=== PATIENT | female | born 1985 | race Caucasian/White ===

== ENCOUNTER 2017-07-19 05:27 | Emergency (ER) | payer BC ==
[~2017-07-19] VITALS: Ht 162.6 cm; Wt 120.8 kg
[2017-07-19 05:33] VITALS: Ht 162.6 cm; Wt 120.8 kg
[2017-07-19] MEDS ORDERED: ONDANSETRON INJ 2 MG/ML 2 ML VIAL IV STA (05:53)
[2017-07-19] MEDS ORDERED: SODIUM CHLORIDE 0.9% 1000ML 1,000 ML IV STA ×2 (05:53)
[2017-07-19] MEDS ORDERED: MEDR10TA PO (05:57)
[2017-07-19] MEDS ORDERED: PRLSR20 PO (05:57)
[2017-07-19 06:15] VITALS: TEMP 36.5
[2017-07-19 06:16] LABS: BASO % 0.3 %; BASO ABS # 0.03 K/uL (0-0.2); COMPLETE YES; EOS % 1.5 %; HEMATOCRIT 45.1 % (37-47); IG% 0.3 %; LYMPH % 23.1 %; LYMPH ABS # 2.41 K/uL (1.2-3.4); MEAN CELL VOLUME 89.8 fL (80-100); MEAN CORPUSCULAR HEMOGLOBIN 30.5 pg (25-34); MEAN CORPUSCULAR HGB CONC 33.9 g/dl (32-36); MEAN PLATELET VOLUME 11.4 fL (7.4-10.4); MONO % 5.9 %; NEUT % 68.9 %; PLATELET COUNT 249 K/uL (130-400); RED BLOOD COUNT 5.02 M/uL (4.2-5.4); WHITE BLOOD COUNT 10.43 K/uL (4.8-10.8)
[2017-07-19 06:28] LABS: BUN/CREATININE RATIO 20.6 (10-20); CALCIUM 9.2 mg/dl (8.5-10.1); CREATININE 0.78 mg/dl (0.60-1.20); POTASSIUM 3.8 mmol/L (3.5-5.1)
[2017-07-19 06:31] LABS: ALB/GLOB RATIO 0.9 (0.9-2)
--- NOTE | 2017-07-19 06:31 | EMERGENCY ROOM VISIT NOTE ---
History First contact with patient: 05:40 Chief Complaint: DIARRHEA Stated Complaint: SEVERE DIARRHEA,STOMACH PAIN,WEAK Nursing Triage Summary: nausea vomiting upset stomach diarrhea abdominal pain since sunday. History of Present Illness The patient is a 31 year old female who presents to the Emergency Room with complaints of diarrhea and vomiting. The patient states that her symptoms began 2 days ago. She initially developed diarrhea and states that she took her temperature that evening and it was 101F. The patient states that yesterday, she also developed vomiting. She has had multiple episodes of both vomiting and diarrhea. She states that her stools are green in color and are foamy. She denies any recent antibiotics or unknown food/water sources. She does report that she has a history of C. difficile diarrhea. She reports some generalized abdominal discomfort which she rates a 6/10. Review of Systems A complete 10 point review of systems was reviewed with the patient with pertinent positives and negatives as per history of present illness. All else were negative. Past Medical/Surgical History Medical Problems: (1) section (2) Cholecystectomy (3) Kidney stone (4) Polycystic ovaries Social History Smoking Status: Current Every Day Smoker Alcohol Use: none Marital Status: Housing Status: lives with significant other Occupation Status: employed Current/Historical Medications Scheduled Dicyclomine Hcl (Bentyl), 1 CAP PO TID Medroxyprogesterone (Provera), 10 MG PO UD Ondasetron Odt (Zofran Odt), 4 MG SL Q6H Scheduled PRN Omeprazole (Prilosec), 20 MG PO DAILY PRN for HEARTBURN Physical Exam Vital Signs Date Time Temp Pulse Resp B/P (MAP) Pulse Ox O2 Delivery O2 Flow Rate FiO2 07/19/17 08:31 68 15 109/56 97 07/19/17 06:36 60 15 108/59 97 Room Air 07/19/17 06:15 36.5 70 18 106/68 98 Room Air 07/19/17 05:33 36.7 86 20 109/76 95 Room Air Physical Exam VITALS: Vitals are noted on the nurse's note and reviewed by myself. Vital signs stable. GENERAL: This is a 31-year-old female, in no acute distress, nondiaphoretic, well-developed well-nourished. SKIN: Capillary reflex less than 2 seconds. HEENT: Normocephalic. PERRLA. Mucous membranes moist. HEART: Regular rate and rhythm without murmurs gallops or rubs. LUNGS: Clear to auscultation bilaterally without wheezes, rales or rhonchi. ABDOMEN: Positive bowel sounds x 4. Soft, nontender to palpation. NEURO: Patient was alert and oriented to person place and time. Medical Decision & Procedures Laboratory Results 07/19/17 06:04 Red Blood Count 5.02, Mean Corpuscular Volume 89.8, Mean Corpuscular Hemoglobin 30.5, Mean Corpuscular Hemoglobin Concent 33.9, Mean Platelet Volume 11.4, Neutrophils (%) (Auto) 68.9, Lymphocytes (%) (Auto) 23.1, Monocytes (%) (Auto) 5.9, Eosinophils (%) (Auto) 1.5, Basophils (%) (Auto) 0.3, Neutrophils # (Auto) 7.18, Lymphocytes # (Auto) 2.41, Monocytes # (Auto) 0.62, Eosinophils # (Auto) 0.16, Basophils # (Auto) 0.03 07/19/17 06:04 Test 07/19/17 06:04 07/19/17 06:35 White Blood Count 10.43 K/uL (4.8-10.8) Red Blood Count 5.02 M/uL (4.2-5.4) Hemoglobin 15.3 g/dL (12.0-16.0) Hematocrit 45.1 % (37-47) Mean Corpuscular Volume 89.8 fL (80-100) Mean Corpuscular Hemoglobin 30.5 pg (25-34) Mean Corpuscular Hemoglobin Concent 33.9 g/dl (32-36) Platelet Count 249 K/uL (130-400) Mean Platelet Volume 11.4 fL (7.4-10.4) Neutrophils (%) (Auto) 68.9 % Lymphocytes (%) (Auto) 23.1 % Monocytes (%) (Auto) 5.9 % Eosinophils (%) (Auto) 1.5 % Basophils (%) (Auto) 0.3 % Neutrophils # (Auto) 7.18 K/uL (1.4-6.5) Lymphocytes # (Auto) 2.41 K/uL (1.2-3.4) Monocytes # (Auto) 0.62 K/uL (0.11-0.59) Eosinophils # (Auto) 0.16 K/uL (0-0.5) Basophils # (Auto) 0.03 K/uL (0-0.2) RDW Standard Deviation 41.3 fL (36.4-46.3) RDW Coefficient of Variation 12.8 % (11.5-14.5) Immature Granulocyte % (Auto) 0.3 % Immature Granulocyte # (Auto) 0.03 K/uL (0.00-0.02) Anion Gap 8.0 mmol/L (3-11) Est Creatinine Clear Calc Drug Dose 132.7 ml/min Estimated GFR () 116.6 Estimated GFR (Non- 100.6 BUN/Creatinine Ratio 20.6 (10-20) Calcium Level 9.2 mg/dl (8.5-10.1) Total Bilirubin 0.5 mg/dl (0.2-1) Aspartate Amino Transf (AST/SGOT) 20 U/L (15-37) Alanine Aminotransferase (ALT/SGPT) 36 U/L (12-78) Alkaline Phosphatase 80 U/L (45-117) Total Protein 7.7 gm/dl (6.4-8.2) Albumin 3.7 gm/dl (3.4-5.0) Globulin 4.0 gm/dl (2.5-4.0) Albumin/Globulin Ratio 0.9 (0.9-2) Lipase 104 U/L (73-393) Urine Color DK YELLOW Urine Appearance CLOUDY (CLEAR) Urine pH 5.5 (4.5-7.5) Urine Specific [place] 1.031 (1.000-1.030) Urine Protein 1+ (NEG) Urine Glucose (UA) NEG (NEG) Urine Ketones TRACE (NEG) Urine Occult Blood NEG (NEG) Urine Nitrite NEG (NEG) Urine Bilirubin NEG (NEG) Urine Urobilinogen NEG (NEG) Urine Leukocyte Esterase NEG (NEG) Urine WBC (Auto) 1-5 /hpf (0-5) Urine RBC (Auto) 0-4 /hpf (0-4) Urine Hyaline Casts (Auto) 1-5 /lpf (0-5) Urine Epithelial Cells (Auto) >30 /lpf (0-5) Urine Bacteria (Auto) NEG (NEG) Urine Crystals CALCIUM OXALATE (NONE Urine Pathogenic Casts 0-3 GRANULAR CASTS /lpf (0) Urine Mucus PRESENT (NONE PRSENT) Urine Test NEG (NEG) Date/Time Source Procedure Growth Status 07/19/17 06:35 Stool C.difficile Toxin B Gene (PCR) - Final No C. difficile toxin B gene detected Complete Medications Administered Medications (Trade) Dose Ordered Sig/Iftikhar Route Start Time Stop Time Status Last Admin Dose Admin Sodium Chloride 1,000 ml @ 999 mls/hr Q1H1M STAT IV 07/19/17 05:53 07/19/17 06:53 DC 07/19/17 06:08 999 MLS/HR Sodium Chloride 1,000 ml @ 999 mls/hr Q1H1M STAT IV 07/19/17 05:53 07/19/17 06:53 DC 07/19/17 06:08 999 MLS/HR Ondansetron HCl (Zofran Inj) 4 mg NOW STAT IV 07/19/17 05:53 07/19/17 05:54 DC 07/19/17 06:08 4 MG Ketorolac Tromethamine (Toradol Inj) 30 mg NOW STAT IV 07/19/17 06:53 07/19/17 06:54 DC 07/19/17 06:58 30 MG ED Course The patient was evaluated as above. Labs were drawn and IV access was obtained. Patient was medicated with IV Zofran and Toradol. She was given a total of 2 L normal saline solution. Patient was reevaluated and felt much better. Discharge instructions were reviewed with the patient. The patient verbalized understanding of my assessment and treatment plan and was discharged home in good condition. Medical Decision Differential diagnosis includes gastroenteritis, colitis, diverticulitis, C. difficile, cholecystitis, bowel obstruction, among others. The patient is a 31-year-old female who presents today complaining of nausea, vomiting and diarrhea. Labs revealed no leukocytosis, anemia or concerning electrolyte abnormalities. Urinalysis was not suggestive of infection. Stool sample was obtained and tested negative for C. difficile. Culture is pending. Patient does not have any abdominal tenderness and I do not feel that imaging is indicated at this time. She had significant improvement with IV fluids, Toradol and Zofran. She was able to tolerate oral fluids. She likely has a gastroenteritis and was encouraged to follow-up closely with her primary care provider. She is given a prescription for Zofran. She will return here for any worsening or new/concerning symptoms. Based on the patient's presentation and work up, I feel the patient is stable for outpatient treatment. The patient was educated to return to the emergency department for any worsening of their current condition or new/concerning symptoms. She will follow up with her PCP. Medication Reconcilliation Current Medication List: was personally reviewed by me Blood Pressure Screening Patient's blood pressure: Normal blood pressure Impression Primary Impression: Nausea, vomiting and diarrhea Departure Information Dispostion Home / Self-Care Condition GOOD Prescriptions Dicyclomine Hcl (BENTYL) 10 Mg Cap 1 CAP PO TID for 3 Days, #9 CAP Prov: Lianna Whitfield PA-C 07/19/17 Ondasetron Odt (ZOFRAN ODT) 4 Mg Tab 4 MG SL Q6H for Nausea, #15 TAB Prov: Lianna Whitfield PA-C 07/19/17 Referrals Dawit Xavier M.D. (PCP) Patient Instructions My [facility] Additional Instructions You have been treated in the Emergency Department for your nausea, vomiting and diarrhea. Laboratory results have ruled out any emergent causes for your abdominal pain which would warrant admission or surgery. You have been prescribed Zofran to be used for any nausea or vomiting. Take as prescribed. Bentyl as prescribed. For pain control, you can use the following [id number] medicines (if >12 yo): - Regular strength (325mg/tab) Tylenol (acetaminophen) 2 tabs every 4-6 hours as needed. Do not exceed 12 tablets in a 24 hour period. Avoid taking more than 4 grams (4000 mg) of Tylenol per day. This includes any other sources of acetaminophen you may take on a regular basis. - Regular strength (200 mg/tab) Advil (ibuprofen) 1-2 tabs every 4-6 hours as needed. Do not exceed a dose of 3200 mg per day. Drink plenty of water and stay well hydrated. As with any trip to the Emergency Department, you should follow-up with your Primary Care Provider from today's visit. Return to the emergency department if your symptoms persist despite treatment plan outlined above or if the following symptoms occur: increased fevers, chills , worsening nausea/vomiting, blood in your stool or urine.
[2017-07-19] MEDS ORDERED: KETOROLAC TROMETHAMINE 30 MG/ML VIAL IV STA (06:53)
[2017-07-19 06:54] LABS: URINE APPEARANCE CLOUDY (CLEAR); URINE COLOR DK YELLOW; URINE EPITHELIAL CELL AUTO >30 /lpf (0-5); URINE NITRITE NEG (NEG); URINE PH 5.5 (4.5-7.5); URINE SPECIFIC GRAVITY 1.031 (1.000-1.030); UROBILINOGEN NEG (NEG); ZZUR CULT IF INDIC CLEAN CATCH NO
[2017-07-19 07:07] LABS: MANUAL MICROSCOPIC REQUIRED? NO; REVIEW REQ? YES; URINE BILIRUBIN NEG (NEG)
[2017-07-19 07:13] LABS: URINE MUCUS PRESENT (NONE PRSENT); URINE PATH CASTS 0-3 GRANULAR CASTS /lpf (0)
[2017-07-19] MEDS ORDERED: ONDA4TAB10 SL (08:11)
[2017-07-19] MEDS ORDERED: DICY10CA55 PO (08:11)
[2017-07-19 08:31] VITALS: BP 109/56; PULSE 68; O2SAT 97
== END 2017-07-19 08:32 | disposition home or self-care (01) ==
LOC: C.EDB 05:28
DX: R11.2 Nausea with vomiting, unspecified (principal); R19.7 Diarrhea, unspecified; F17.210 Nicotine dependence, cigarettes, uncomplicated; Z87.442 Personal history of urinary calculi; E28.2 Polycystic ovarian syndrome

== ENCOUNTER → 2017-09-29 | Outpatient (CLI) | payer BC ==
[~2017-09-29] MED LIST: MEDR10TA PO; ONDA4TAB10 SL; PRLSR20 PO
[2017-09-29 10:55] LABS: HEMATOCRIT 40.6 % (37-47); MEAN CORPUSCULAR HEMOGLOBIN 30.5 pg (25-34); MEAN CORPUSCULAR HGB CONC 33.5 g/dl (32-36); MEAN PLATELET VOLUME 11.5 fL (7.4-10.4); PLATELET COUNT 212 K/uL (130-400); RED BLOOD COUNT 4.46 M/uL (4.2-5.4)
== END | disposition home or self-care (01) ==
LOC: C.LAB 10:28
PROVIDERS: ATTEND Obstetrics & Gynecology
DX: N93.8 Other specified abnormal uterine and vaginal bleeding (principal)

== ENCOUNTER 2018-05-10 21:40 | Emergency (ER) | payer BC ==
[~2018-05-10] VITALS: Ht 162.6 cm; Wt 120.0 kg
[2018-05-10 21:42] VITALS: TEMP 36.8; Ht 162.6 cm; Wt 120.0 kg
[2018-05-10] MEDS ORDERED: KETOROLAC TROMETHAMINE 30 MG/ML VIAL IV STA (22:02)
[2018-05-10] MEDS ORDERED: ONDANSETRON INJ 2 MG/ML 2 ML VIAL IV STA (22:02)
[2018-05-10] MEDS ORDERED: SODIUM CHLORIDE 0.9% 1000ML 1,000 ML IV ONE (22:15)
[2018-05-10 22:21] LABS: BASO % 0.5 %; BASO ABS # 0.05 K/uL (0-0.2); EOS % 1.4 %; EOS ABS # 0.15 K/uL (0-0.5); HEMOGLOBIN 13.9 g/dL (12.0-16.0); IG# 0.03 K/uL (0.00-0.02); LYMPH % 31.9 %; LYMPH ABS # 3.42 K/uL (1.2-3.4); MEAN CELL VOLUME 89.7 fL (80-100); MEAN CORPUSCULAR HEMOGLOBIN 30.4 pg (25-34); MEAN CORPUSCULAR HGB CONC 33.9 g/dl (32-36); MEAN PLATELET VOLUME 11.7 fL (7.4-10.4); MONO % 8.2 %; MONO ABS # 0.88 K/uL (0.11-0.59); NEUT % 57.7 %; NEUT ABS # 6.19 K/uL (1.4-6.5); PLATELET COUNT 218 K/uL (130-400); RED CELL DISTRIBUTION WIDTH CV 12.9 % (11.5-14.5); RED CELL DISTRIBUTION WIDTH SD 41.7 fL (36.4-46.3); WHITE BLOOD COUNT 10.72 K/uL (4.8-10.8)
[2018-05-10 22:42] LABS: ALBUMIN 3.6 gm/dl (3.4-5.0); CALCIUM 9.1 mg/dl (8.5-10.1); CREATININE 0.7 mg/dl (0.60-1.20); POTASSIUM 3.8 mmol/L (3.5-5.1); TOTAL PROTEIN 7.4 gm/dl (6.4-8.2)
[2018-05-11 01:18] VITALS: BP 93/70; PULSE 60; O2SAT 97
[2018-05-11] MEDS ORDERED: NORCO 5/325MG HOME PACK PO ONE (01:45)
--- NOTE | 2018-05-11 06:12 | DIAGNOSTIC IMAGING REPORT ---
EXAMINATION: PELVIC ULTRASOUND (transabdominal and endovaginal scanning) CLINICAL HISTORY: Pelvic pain and cramping COMPARISON STUDY: CT scan dated 05/09/2018 FINDINGS: The uterus measured 5.1 x 4.2 x 4.9 cm. The endometrial stripe measured 8 mm. The right ovary measured 29 x 22 x 25 mm. There is a 9 mm hyperechoic ringlike focus within the right ovary. The appearance is nonspecific but correlation with a beta hCG is recommended to exclude an ectopic . The left ovary measured 36 x 24 x 27 mm.. There is no ultrasonographic evidence of ovarian torsion. It should be noted that ovarian torsion can be present with normal Doppler ultrasonographic findings. There was no evidence of pathologic free pelvic fluid. IMPRESSION: 1. No uterine abnormalities identified 2. Nonspecific 9 mm hypoechoic ringlike focus within the right ovary. While this may simply represent a complicated involuting cyst, correlation with a beta hCG is recommended to exclude an ectopic Electronically signed by: Claudio Ramirez M.D. 05/11/2018 6:10 AM Dictated Date/Time: 05/11/2018 6:06 AM
--- NOTE | 2018-05-11 06:17 | DIAGNOSTIC IMAGING REPORT ---
ABDOMEN 2VIEW W/PA CHEST RTN CLINICAL HISTORY: low abd pain/cramping COMPARISON STUDY: 04/19/2015 FINDINGS: The erect chest reveals no free intraperitoneal air. There is no focal pulmonary consolidation. There are surgical clips within the right upper quadrant consistent with a prior cholecystectomy. There are no abnormally dilated loops of large or small bowel. There are no transition zone to indicate bowel obstruction. There is a sclerotic density projected over the left acetabulum likely representing a bone island. IMPRESSION: No evidence of bowel obstruction. No evidence of free air. Electronically signed by: Claudio Ramirez M.D. 05/11/2018 6:15 AM Dictated Date/Time: 05/11/2018 6:14 AM
--- NOTE | 2018-05-11 23:18 | EMERGENCY ROOM VISIT NOTE ---
History First contact with patient: 21:46 Chief Complaint: ABDOMINAL PAIN Stated Complaint: PAIN RIGHT LOWER SIDE, 99.9 TEMP Nursing Triage Summary: Pt reports right sided abdominal pain since Sunday. Pt was evaluated here yesterday. Pt remains with pain. +nausea and fever. Pt tender to right upper abdomen. History of Present Illness The patient is a 32 year old female who presents to the Emergency Room with complaints of right lower quadrant abdominal pain for the past 2 days. The patient was seen and evaluated at this facility yesterday where blood work and CT scan with contrast were nondiagnostic. The patient states that she felt well at the time of discharge home. Upon waking from sleep this morning she states that she had some nausea which was new. She also states that she had a 99.9F temperature at home. She has not taken any Advil or Tylenol for her symptoms. She rates her discomfort a 5/10. No vaginal drainage or discharge. She is not concerned for STDs. She does have past surgical history including section and cholecystectomy. Review of Systems More than 10 systems were reviewed and otherwise negative with the exception of history of present illness. Past Medical/Surgical History Medical Problems: (1) section (2) Cholecystectomy (3) Kidney stone (4) Polycystic ovaries Family History Diabetes mellitus FHx: gallbladder disease Heart disease Hypertension Kidney disease Kidney stones Lung disease Social History Smoking Status: Current Every Day Smoker Alcohol Use: none Marital Status: Housing Status: lives with significant other Occupation Status: employed Current/Historical Medications No Active Prescriptions or Reported Meds Physical Exam Vital Signs Date Time Temp Pulse Resp B/P (MAP) Pulse Ox O2 Delivery O2 Flow Rate FiO2 05/11/18 01:18 60 16 93/70 97 Room Air 05/10/18 23:23 69 16 106/54 95 Room Air 05/10/18 21:42 36.8 80 18 125/84 97 Room Air Physical Exam VITALS: Vitals are noted on the nurse's note and reviewed by myself. Vital signs stable. GENERAL: Well-developed, well-nourished, obese white female, who is in no acute distress and resting comfortably. Patient is cooperative with the examination. HEAD: Normocephalic atraumatic. HEART: Regular rate and rhythm without murmurs gallops or rubs. LUNGS: Clear to auscultation bilaterally without wheezes, rales or rhonchi. No retractions or accessory muscle use. ABDOMEN: Positive normal bowel sounds x 4. Soft with mild right lower quadrant tenderness on palpation. No rebound or guarding. No CVA tenderness. PELVIC: Examination was performed in the presence of a female nursing vault keeper. Normal-appearing external female genitalia without rash or lesion. Vaginal vault without lesion, malodor, or obvious atypical discharge. Cervix was easily identified and appears without lesion or discharge. Swabs were obtained. No cervical motion tenderness. Bimanual exam was nondiagnostic secondary to patient's body habitus. MUSCULOSKELETAL: No muscle atrophy, erythema, or edema noted. Full range of motion in all extremities. Medical Decision & Procedures ER Provider Diagnostic Interpretation: ABDOMEN 2VIEW W/PA CHEST RTN CLINICAL HISTORY: low abd pain/cramping COMPARISON STUDY: 04/19/2015 FINDINGS: The erect chest reveals no free intraperitoneal air. There is no focal pulmonary consolidation. There are surgical clips within the right upper quadrant consistent with a prior cholecystectomy. There are no abnormally dilated loops of large or small bowel. There are no transition zone to indicate bowel obstruction. There is a sclerotic density projected over the left acetabulum likely representing a bone island. IMPRESSION: No evidence of bowel obstruction. No evidence of free air. EXAMINATION: PELVIC ULTRASOUND (transabdominal and endovaginal scanning) CLINICAL HISTORY: Pelvic pain and cramping COMPARISON STUDY: CT scan dated 05/09/2018 FINDINGS: The uterus measured 5.1 x 4.2 x 4.9 cm. The endometrial stripe measured 8 mm. The right ovary measured 29 x 22 x 25 mm. There is a 9 mm hyperechoic ringlike focus within the right ovary. The appearance is nonspecific but correlation with a beta hCG is recommended to exclude an ectopic . The left ovary measured 36 x 24 x 27 mm.. There is no ultrasonographic evidence of ovarian torsion. It should be noted that ovarian torsion can be present with normal Doppler ultrasonographic findings. There was no evidence of pathologic free pelvic fluid. IMPRESSION: 1. No uterine abnormalities identified 2. Nonspecific 9 mm hypoechoic ringlike focus within the right ovary. While this may simply represent a complicated involuting cyst, correlation with a beta hCG is recommended to exclude an ectopic Laboratory Results 05/10/18 22:11 Red Blood Count 4.57, Mean Corpuscular Volume 89.7, Mean Corpuscular Hemoglobin 30.4, Mean Corpuscular Hemoglobin Concent 33.9, Mean Platelet Volume 11.7, Neutrophils (%) (Auto) 57.7, Lymphocytes (%) (Auto) 31.9, Monocytes (%) (Auto) 8.2, Eosinophils (%) (Auto) 1.4, Basophils (%) (Auto) 0.5, Neutrophils # (Auto) 6.19, Lymphocytes # (Auto) 3.42, Monocytes # (Auto) 0.88, Eosinophils # (Auto) 0.15, Basophils # (Auto) 0.05 05/10/18 22:11 Test 05/10/18 22:10 05/10/18 22:11 05/11/18 00:44 05/11/18 01:05 Urine Color YELLOW Urine Appearance CLEAR (CLEAR) Urine pH 5.5 (4.5-7.5) Urine Specific [place] 1.019 (1.000-1.030) Urine Protein NEG (NEG) Urine Glucose (UA) NEG (NEG) Urine Ketones NEG (NEG) Urine Occult Blood NEG (NEG) Urine Nitrite NEG (NEG) Urine Bilirubin NEG (NEG) Urine Urobilinogen NEG (NEG) Urine Leukocyte Esterase NEG (NEG) White Blood Count 10.72 K/uL (4.8-10.8) Red Blood Count 4.57 M/uL (4.2-5.4) Hemoglobin 13.9 g/dL (12.0-16.0) Hematocrit 41.0 % (37-47) Mean Corpuscular Volume 89.7 fL (80-100) Mean Corpuscular Hemoglobin 30.4 pg (25-34) Mean Corpuscular Hemoglobin Concent 33.9 g/dl (32-36) Platelet Count 218 K/uL (130-400) Mean Platelet Volume 11.7 fL (7.4-10.4) Neutrophils (%) (Auto) 57.7 % Lymphocytes (%) (Auto) 31.9 % Monocytes (%) (Auto) 8.2 % Eosinophils (%) (Auto) 1.4 % Basophils (%) (Auto) 0.5 % Neutrophils # (Auto) 6.19 K/uL (1.4-6.5) Lymphocytes # (Auto) 3.42 K/uL (1.2-3.4) Monocytes # (Auto) 0.88 K/uL (0.11-0.59) Eosinophils # (Auto) 0.15 K/uL (0-0.5) Basophils # (Auto) 0.05 K/uL (0-0.2) RDW Standard Deviation 41.7 fL (36.4-46.3) RDW Coefficient of Variation 12.9 % (11.5-14.5) Immature Granulocyte % (Auto) 0.3 % Immature Granulocyte # (Auto) 0.03 K/uL (0.00-0.02) Anion Gap 7.0 mmol/L (3-11) Est Creatinine Clear Calc Drug Dose 145.9 ml/min Estimated GFR () 131.9 Estimated GFR (Non- 113.8 BUN/Creatinine Ratio 21.3 (10-20) Calcium Level 9.1 mg/dl (8.5-10.1) Total Bilirubin 0.3 mg/dl (0.2-1) Aspartate Amino Transf (AST/SGOT) 17 U/L (15-37) Alanine Aminotransferase (ALT/SGPT) 30 U/L (12-78) Alkaline Phosphatase 78 U/L (45-117) Total Protein 7.4 gm/dl (6.4-8.2) Albumin 3.6 gm/dl (3.4-5.0) Globulin 3.8 gm/dl (2.5-4.0) Albumin/Globulin Ratio 1.0 (0.9-2) Lipase 179 U/L (73-393) Human Chorionic Gonadotropin, Quant < 1 mIU/mL Medications Administered Medications (Trade) Dose Ordered Sig/Iftikhar Route Start Time Stop Time Status Last Admin Dose Admin Sodium Chloride 1,000 ml @ 999 mls/hr Q1H1M ONCE IV 05/10/18 22:15 05/10/18 23:15 DC 05/10/18 22:19 999 MLS/HR Ketorolac Tromethamine (Toradol Inj) 30 mg NOW STAT IV 05/10/18 22:02 05/10/18 22:05 DC 05/10/18 22:21 30 MG Ondansetron HCl (Zofran Inj) 4 mg NOW STAT IV 05/10/18 22:02 05/10/18 22:05 DC 05/10/18 22:19 4 MG Acetaminophen/ Hydrocodone Bitart ([place] 5/325mg Home Pack) 1 homepack UD ONCE PO 05/11/18 01:45 05/11/18 01:46 DC 05/11/18 01:39 1 [facility] ED Course Physical exam and history were performed. Nursing notes, EMR, and Medication List were personally reviewed. Patient appears to have right lower abdominal pain for the past few days. On examination her discomfort is very minimal in the right lower quadrant. She states that her symptoms have slightly differed from yesterday, where now she has some nausea and reports a low-grade fever. Of note she does not have a temperature here in the ER and has not taken any antipyretics to improve this. Because of her symptoms IV access was established and labs were obtained. The patient was hydrated and medicated as above. X-ray and ultrasound were ordered. The case was discussed with my attending physician, who remain closely involved in care decision-making The patient's blood work is as above and was reviewed. She does not have a significantly elevated white blood cell count, gross anemia, bandemia, or significant electrolyte imbalance. Transaminases are nondiagnostic. Urine is without obvious evidence of. X-ray was reviewed by myself and radiology as showing no significant. The patient's ultrasound suggests a 1 cm atypical finding near the right ovary. The patient's hCG quantitative is less than 1, and she has a negative urine yesterday. I do not suspect this is related to an ectopic or other similar process. Pelvic swabs are pending at the time of this dictation. On reevaluation the patient appears very comfortable. Her repeat abdominal exam continues with only minimal tenderness. Her symptoms certainly could be related to a cyst or KNOTTER HAND etiology. She does not seem to have torsion or other acute surgical process. The patient appears well for discharge home and was given instructions to follow with her KNOTTER HAND. She was otherwise invited back to the ER with any new, worsening, or concerning symptoms. The chart was completed utilizing [employer] Speech Voice Recognition Software. Grammatical errors, random word insertions, pronoun errors, and incomplete sentences are an occasional consequence of this system due to software limitations, ambient noise, and hardware issues. Any formal questions or concerns about the content, text, or information contained within the body of this dictation should be directly addressed to the provider for clarification. . Medical Decision Differential diagnosis: Etiologies such as KNOTTER HAND etiology, appendicitis, diverticulitis, PUD, biliary pathology, UTI, pancreatitis, obstruction, mesenteric ischemia, aortic pathology , infections, inflammatory bowel disease, renal colic, as well as others were entertained. Impression Primary Impression: Right lower quadrant abdominal pain Departure Information Dispostion Home / Self-Care Condition GOOD Prescriptions No Active Prescriptions or Reported Meds Referrals Laisha Barth D.O. (PCP) Forms Call Back Authorization, HOME CARE DOCUMENTATION FORM, IMPORTANT VISIT INFORMATION Patient Instructions My [facility] Additional Instructions You were seen and evaluated today on an emergency basis only. This is not a substitute for, or an effort to provide, complete comprehensive medical care. It is not possible to recognize and treat all injuries or illnesses in a single emergency department visit. For this reason it is recommended that you followup with your KNOTTER HAND for ongoing care and evaluation. For baseline pain relief you may alternate ibuprofen and acetaminophen every 4 hours for pain control. Take 600 mg ibuprofen (Advil) and then 4 hours later take 1000 mg acetaminophen (Tylenol). Do not take more than 3000 mg acetaminophen in a single day. [place] (hydrocodone/acetaminophen) 5/325 mg (homepack): Take ONE pill by mouth every 6 hours as needed for worsening breakthrough pain. Do not drink or drive on [place]. This medication will likely make you tired. Do not take [place] and Tylenol at the same time as both contain acetaminophen. [place] may cause constipation. You may wish to take an [id number] stool softener like Colace if this occurs. You are welcome to return to the emergency department anytime with new, worsening, or concerning symptoms.
== END 2018-05-11 01:45 | disposition home or self-care (01) ==
LOC: C.EDB 21:41 → C.EDC 05-11 01:45
DX: R10.31 Right lower quadrant pain (principal); R11.0 Nausea; R50.9 Fever, unspecified; F17.200 Nicotine dependence, unspecified, uncomplicated; Z90.49 Acquired absence of other specified parts of digestive tract; Z83.79 Family history of other diseases of the digestive system

== ENCOUNTER 2024-07-27 11:29 | Observation (INO) ==
[2024-07-27] MEDS: SODIUM CHLORIDE 0.9% 1,000 ML IV SCH (12:06)
--- NOTE | 2024-07-27 12:08 | Emergency Department Note ---
History of Present Illness General Chief complaint: Dental/Oral Stated complaint: EDEMA LT SIDE FACE, VOMITING, TOOTH PROBLEM/BACK Time Seen by Provider: 07/27/24 11:37 History of Present Illness Maximum Pain Intensity: 6 This is a 38-year-old female that presents to the emergency department via private vehicle with complaints of "left-sided facial swelling, dental pain". The patient notes this past she began with some pain to the left posterior inferior molar region. No trauma. No injury. She notes that the left posterior inferior molar is broken on the backside. She is trying to follow-up with specialists. She notes that she was seen here yesterday and started on oral penicillin as had 2 doses thus far. Upon awakening she notes progressive left-sided facial swelling and pain. She is concerned noting the swelling and progression. Home Medications Medication Instructions Recorded Confirmed Type medroxyprogesterone 10 mg tablet 10 mg PO DAILY PRN Other 05/12/24 07/27/24 History semaglutide (weight loss) 0.25 0.25 mg (0.5 mL) subcut Q7D #2 mL 05/22/24 07/27/24 Rx mg/0.5 mL subcutaneous pen injector (Wegovy) lidocaine HCl 2 % mucosal solution 15 ml PO QID PRN mouth pain #300 mL 07/26/24 07/27/24 Rx (Lidocaine Viscous) penicillin V potassium 500 mg 500 mg PO QID #40 tabs 07/26/24 07/27/24 Rx tablet tramadol 50 mg tablet 50 - 100 mg (1 - 2 x 50 mg) PO Q6H 07/26/24 07/27/24 Rx PRN pain #10 tabs bupropion HCl 150 mg tablet,12 hr 150 mg PO UD 07/27/24 07/27/24 History sustained-release Allergies Allergy/AdvReac Type Severity Reaction Status Date / Time No Known Drug Allergies AdvReac Intermediate Unverified 07/23/24 09:36 Past Med/Surg History Problem List (Updated 07/27/24 @ 16:50 by Raymond Jolly PA-C) Dental abscess (Acute) Obesity Facial cellulitis (Acute) Left facial swelling (Acute) Jaw pain (Acute) Metabolic dysfunction-associated steatotic liver disease (MASLD) Impaired fasting glucose Hypertriglyceridemia Metabolic syndrome Tobacco dependence Grief Polycystic ovarian syndrome Ovarian cyst, bilateral (Acute) Kidney stone (Acute) Medical History Kidney stone (07/15/13) Polycystic ovaries (07/15/13) Broken tooth Surgical History Hx of cholecystectomy (07/15/13) Previous section (07/15/13) 2x History of ankle surgery 2020 History of dental surgery Family History Brother Alcohol abuse Diabetes Myocardial infarction Mother Anxiety Lung disease Father Diabetes Gallbladder disease Heart disease Hypertension Sister Gallbladder disease Aunt Breast cancer great aunt Denies family history of Ovarian cancer Prostate cancer Colorectal cancer Social History Smoking Status: Current every day smoker Tobacco Type: Cigarettes Age Started Using Tobacco: 20; packs per day: 0.5; Second Hand Exposure: No; Do You Dip or Chew Tobacco: No; Tobacco Cessation Education Requested by Patient: No Hx Alcohol Use: No Hx Substance Use: No Preferred Language: Kyrgyz Communication Ability: Effective Visual Impairment: No Limitations Hearing Ability: Normal Legal Executive Required: No Beliefs That Will Affect Care: None marital status: Current Living Situation: Spouse current occupational status: employed 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; 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 How many Children do You have: 2 Other Information That Helps Us Care for You: No Feels Safe at Home: Yes Safety Concerns: Feels Safe At This Time Childhood Exposure to Second-Hand Smoke: Yes Diet: other Dental Care, Regularly: Yes Physical Activity Frequency: 1-2 Times per Week Seatbelt Use: always Sunscreen Use: Yes Review of Systems A total of 10 systems reviewed and were otherwise negative Physical Exam Vital Signs Vital Signs - 24 hr 07/27/24 11:33 Temperature 36.9 C Temperature Source Temporal Artery Scan Pulse Rate 103 H Respiratory Rate 19 Respiratory Effort / Characteristics Non-Labored Spontaneous Respiratory Depth Normal Blood Pressure 126/84 Blood Pressure Mean 98 Blood Pressure Position Sitting Pulse Oximetry 96 Oxygen Delivery Method Room Air Sepsis Recent Fever Within 48 Hours No Sepsis New/Unexplained Change in Mental Status No Sepsis Action Taken by Nursing No Action Required VITAL SIGNS - Vital signs and nursing notes were reviewed. Stable and afebrile. GENERAL -38-year-old female appearing her stated age who is in no acute distress. Communicates well with provider and answers questions appropriately. SKIN -left-sided facial edema noted most pronounced overlying the angle of the mandible tracking superiorly just inferior to the left orbital region as well as inferiorly into the neck anteriorly. No crepitus. Minor erythema noted to the integument. HEAD - NC/AT. EYES - PERRL with EOMI bilaterally. Sclera anicteric. Palpebral conjunctiva pink and moist with no injection noted. EARS - No deformities of external structures noted on gross examination bilaterally. No pain elicited with palpation of the tragus bilaterally. External auditory canals without discharge or otorrhea. Tympanic membranes [place] without retraction or bulging. No fluid or purulent material visualized behind the TM. Handle of malleus, umbo, cone of light, pars tensa/flaccid all easily visualized. NOSE - Midline and without cyanosis. No epistaxis or purulent drainage noted. Septum midline without deviation or septal hematoma noted. MOUTH/OROPHARYNX - Without perioral cyanosis. Buccal mucosa pink and moist and without leukoplakia. Tongue midline with equal elevation of palate bilaterally. No tonsillar hypertrophy, erythema, or exudates noted. Tooth #20 is missing and tooth #19 has surrounding erythema. Fair dentition noted. Tenderness overlying the left side of the face NECK - Neck with FROM. Supple to palpation. Mild bilateral anterior cervical left greater than right lymphadenopathy noted. No nuchal rigidity. LUNGS - Chest wall symmetric without accessory muscle use, intercostals retractions, or central cyanosis. Normal vesicular breath sounds CTA B/L. No wheezes, rales, or rhonchi appreciated. CARDIAC - RRR EXTREMITIES - No clubbing or peripheral cyanosis. +5/5 strength noted in UE/LE bilaterally. NEUROLOGIC - Cranial nerves II through XII grossly intact. PSYCH -alert, oriented and pleasant on exam. Course Administered Medications Acetaminophen (Acetaminophen 325 Mg Tab) 650 mg PO Q4H PRN PRN Reason: pain/fever Stop: 08/26/24 13:23 Last Admin: 07/27/24 15:50 Dose: 650 mg Documented By: SLD Discontinued Medications Ampicillin Sodium/Sulbactam Sodium (Unasyn) 3,000 mg in 100 mls @ 200 mls/hr IV NOW STA Stop: 07/27/24 12:24 Last Infusion: 07/27/24 12:49 Dose: Infused Documented By: Admin: 07/27/24 12:19 Dose: 200 mls/hr Documented By: ARIC Sodium Chloride (Nss) 1,000 mls @ 999 mls/hr IV .Q1H1M RAYMOND Stop: 07/27/24 13:00 Last Infusion: 07/27/24 14:08 Dose: Infused Documented By: Admin: 07/27/24 12:06 Dose: 999 mls/hr Documented By: ARIC Ioversol (Optiray 320 100ml) 94 ml IV ONCE ONE Stop: 07/27/24 12:39 Last Admin: 07/27/24 12:39 Dose: 94 ml Documented By: MIRANDA Ondansetron HCl (Ondansetron Inj 2 Mg/Ml 2 Ml Vial) 4 mg IV NOW STA Stop: 07/27/24 13:21 Last Admin: 07/27/24 13:24 Dose: 4 mg Documented By: NEFTALI Medical Decision Making Laboratory Data 07/27/24 12:08 07/27/24 12:08 Lab Results 07/27/24 Range/Units 12:08 WBC 7.31 (4.8-10.8) K/ul RBC 5.16 (4.20-5.40) M/uL Hgb 15.7 (12.0-16.0) g/dl Hct 46.0 (37.0-47.0) % MCV 89.1 (80.0-100.0) fL MCH 30.4 (25.0-34.0) pg MCHC 34.1 (32.0-36.0) g/dL RDW Std Deviation 40.2 (36.4-46.3) fL RDW Coeff of Mariusz 12.1 (11.5-14.5) % Plt Count 207 (130-400) K/uL MPV 12.1 (9.4-12.4) fL Immature Gran % (Auto) 0.1 % Neut % (Auto) 77.4 % Lymph % (Auto) 14.6 % [place] % (Auto) 6.3 % Eos % (Auto) 1.2 % Baso % (Auto) 0.4 % Neut # (Auto) 5.65 (1.40-6.50) K/uL Lymph # (Auto) 1.07 L (1.20-3.40) K/uL [place] # (Auto) 0.46 (0.11-0.59) K/uL Eos # (Auto) 0.09 (0.00-0.50) K/uL Baso # (Auto) 0.03 (0.00-0.20) K/uL Immature Gran # (Auto) 0.01 (0.01-0.20) K/uL Sodium 140 (136-145) mmol/L Potassium 4.0 (3.5-5.1) mmol/L Chloride 106 (98-107) mmol/L Carbon Dioxide 27 (21-32) mmol/L Anion Gap 7 (3-11) BUN 15 (6-23) mg/dl Creatinine 0.64 (0.6-1.2) mg/dl Est Cr Clr Drug Dosing 146.3 ml/min eGFR 115.21 BUN/Creatinine Ratio 23.4 H (10-20) Glucose 98 (70-99(Fasting)) mg/dl Calcium 9.2 (8.6-10.3) mg/dl Total Bilirubin 0.8 (0.2-1.0) mg/dl AST 19 (13-39) U/L ALT 28 (7-52) U/L Alkaline Phosphatase 72 (34-104) U/L Total Protein 7.2 (6.0-8.3) gm/dl Albumin 4.3 (3.4-5.0) gm/dl Globulin 2.9 (2.5-4.0) gm/dl Albumin/Globulin Ratio 1.5 (0.9-2) HCG, Qual Negative (Negative) Imaging Data Radiologist's Impression: Soft Tissue Neck CT 07/27/24 11:55 CT soft tissue neck w con HISTORY: 38 years-old Female L facial edema, dental issue acute left sided facial pain with swelling COMPARISON: None TECHNIQUE: Multiple axial CT images of the soft tissues of the neck were obtained with IV contrast. A dose lowering technique was used consistent with the principals of ALARA. FINDINGS: Peripheral enhancing 10 x 2 mm abscess abuts the left fibular alveolar ridge on image 183 series 3. Moderate adjacent mild to moderate cellulitis changes with reactive submandibular lymph nodes measuring up to 7 mm. Unremarkable parotid and submandibular glands. Patent airway. Unremarkable epiglottis, glottis and subglottic airway. Subcentimeter hypodense right-sided thyroid nodule. Lung apices are clear. No pneumothorax. No drainable fluid collections. The imaged intracranial structures and vascular structures appear unremarkable. Mastoid air cells and middle ear cavities are clear. Small left ethmoid sinus osteoma. Large dental caries with moderate-sized periapical cyst formation is noted within the first left mandibular molar on image 161 series 3. Numerous prior dental extractions. IMPRESSION: 1. Left first mandibular molar dental caries with periapical cyst formation. 2. There is adjacent left mandibular/facial cellulitis with 10 mm abscess. ACT 112: Negative or not required by law. The above report was generated using voice recognition software. It may contain grammatical, syntax or spelling errors. Electronically signed by: Stephen Gonzalez M.D. 07/27/2024 12:59 PM MDM Narrative Patient was seen and evaluated as above in room D05. Review was performed of nursing notes and vital signs. I did review pertinent previous visits and patient history. After obtaining a thorough history and physical examination the above work up was performed. Patient presents to us today for assessment of progressively worsening left-sided facial pain and swelling. This is likely of dental origin. No evidence of Tyrel's angina on assessment. IV access with established. Labs were drawn. IV Unasyn was ordered as well as IV Zofran. Labs reveal no leukocytosis or concerning anemia. No emergent metabolic disturbance. CT scan was obtained of the neck with IV contrast. Results as above. The patient does have a left first mandibular molar dental caries with parable cyst formation and adjacent left mandibular/facial cellulitis and 10 mm abscess. This does clinically correlate. I discussed this at 1:[address] Shipley of oral maxillofacial surgery. We discussed options. We will proceed with inpatient management, IV antibiotics, n.p.o. after midnight and he will see the patient during hospitalization for further evaluation and management. Case discussed with the hospitalist service. Please refer to further documentation regarding her stay. GCS: 15 In the evaluation and treatment of this patient, the following differential diagnoses were considered: Periapical Abscess, Osteonecrosis of the Jaw, Dental Fracture, Dental Caries, Tyrel's Angina, Vincent's Angina, Facial Cellulitis. Impression & Plan Left facial swelling, Facial cellulitis, Dental abscess Discharge Plan Visit Data Chief Complaint: Dental/Oral Stated Complaint: EDEMA LT SIDE FACE, VOMITING, TOOTH PROBLEM/BACK ED Provider: Sanjay Shine ED Midlevel Provider: Raymond Jolly Discharge Problem: Left facial swelling, Facial cellulitis, Dental abscess Patient Disposition: Admitted As Inpatient Condition: Good Discharge Instructions Interventions: ED Discharge Assessment Last Done: 07/27/24 16:14
[2024-07-27 12:19] LABS: Basophils # (auto) 0.03 K/uL (0.00-0.20); Basophils % (auto) 0.4 %; Eosinophils # (auto) 0.09 K/uL (0.00-0.50); Eosinophils % (auto) 1.2 %; Hemoglobin 15.7 g/dl (12.0-16.0); Immature Granulocytes # (auto) 0.01 K/uL (0.01-0.20); Immature Granulocytes % (auto) 0.1 %; Lymphocytes # (auto) 1.07 K/uL (1.20-3.40); Lymphocytes % (auto) 14.6 %; Mean Corpuscular Hemoglobin 30.4 pg (25.0-34.0); Mean Corpuscular Hgb Conc 34.1 g/dL (32.0-36.0); Mean Corpuscular Volume 89.1 fL (80.0-100.0); Mean Platelet Volume 12.1 fL (9.4-12.4); Monocytes # (auto) 0.46 K/uL (0.11-0.59); Monocytes % (auto) 6.3 %; Neutrophils # (auto) 5.65 K/uL (1.40-6.50); Neutrophils % (auto) 77.4 %; Platelet Count 207 K/uL (130-400); RDW Coefficient of Variation 12.1 % (11.5-14.5); RDW Standard Deviation 40.2 fL (36.4-46.3); Red Blood Count 5.16 M/uL (4.20-5.40); White Blood Count 7.31 K/ul (4.8-10.8)
[2024-07-27] MEDS: AMPICILLIN/SULBACTAM SOD 3,000 MG/100 ML BAG IV STA (12:19)
[2024-07-27 12:35] LABS: Albumin Globulin Ratio 1.5 (0.9-2); Albumin Level 4.3 gm/dl (3.4-5.0); BUN Creatinine Ratio 23.4 (10-20); Bilirubin,Total 0.8 mg/dl (0.2-1.0); Calcium 9.2 mg/dl (8.6-10.3); Creatinine Clr Calc Pharmacy 146.3 ml/min; Globulin 2.9 gm/dl (2.5-4.0); Total Protein 7.2 gm/dl (6.0-8.3)
[2024-07-27] MEDS: OPTIRAY 320 100ml IV ONE (12:39)
[2024-07-27 12:47] LABS: Pregnancy Test, Serum Negative (Negative)
--- NOTE | 2024-07-27 13:02 | CT Scan Report ---
CT soft tissue neck w con HISTORY: 38 years-old Female L facial edema, dental issue acute left sided facial pain with swelling COMPARISON: None TECHNIQUE: Multiple axial CT images of the soft tissues of the neck were obtained with IV contrast. A dose lowering technique was used consistent with the principals of ALARA. FINDINGS: Peripheral enhancing 10 x 2 mm abscess abuts the left fibular alveolar ridge on image 183 series 3. M oderate adjacent mild to moderate cellulitis changes with reactive submandibular lymph nodes measurin g up to 7 mm. Unremarkable parotid and submandibular glands. Patent airway. Unremarkable epiglottis, glottis and subglottic airway. Subcentimeter hypodense right-sided thyroid nodule. Lung apices are clear. No pneumothorax. No drainable fluid collections. The imaged intracranial struc tures and vascular structures appear unremarkable. Mastoid air cells and middle ear cavities are fabiano r. Small left ethmoid sinus osteoma. Large dental caries with moderate-sized periapical cyst formatio n is noted within the first left mandibular molar on image 161 series 3. Numerous prior dental extrac tions. IMPRESSION: 1. Left first mandibular molar dental caries with periapical cyst formation. 2. There is adjacent left mandibular/facial cellulitis with 10 mm abscess. ACT 112: Negative or not required by law. The above report was generated using voice recognition software. It may contain grammatical, syntax o r spelling errors. Electronically signed by: Stephen Gonzalez M.D. 07/27/2024 12:59 PM
--- NOTE | 2024-07-27 13:22 | History & Physical Report ---
Date of Service July 27, 2024 Assessment & Plan (1) Facial cellulitis: Plan: Worsening pain in the left lower mandible that began on 07/24 She then developed significant swelling overnight and came in on 07/27 Hx of dental caries; she reports that she has been at the dentist twice, where they attempted to take her "out, but were unable to She was told she might need to be placed under general anesthesia for this procedure, but she has been putting this off due to some anxiety No leukocytosis; afebrile Soft tissue neck CT revealed left mandibular/facial cellulitis with a 10 mm abscess Unasyn 3000 mg IV q6h Oral maxillary facial surgery consult appreciated Will make patient n.p.o. at midnight in the event that she needs OR on 07/28 Clear liquid diet Encourage fluids up until 4 AM Pain control with acetaminophen and Toradol as needed IV antiemetics as needed Benadryl 25 mg IV q6h as needed for acute worsening of facial/throat swelling Continuous pulse oximetry A.m. CBC, BMP, Mag, CRP, PT/INR (2) Tobacco dependence: Plan: Patient is a current everyday tobacco cigarette smoker; <1PPD While she declines nicotine patch on admission, she reports that she might need one later on She reports that she is planning to start on bupropion in the near future Continue to encourage smoking cessation (3) Obesity: Plan: Patient recently started Wegovy for weight loss Hold Wegovy while inpatient (4) Left facial swelling: (5) Jaw pain: Plan Disposition: Admit to [facility] Full code Clear liquid diet, then n.p.o. at midnight VTE PPX: SCDs History of Present Illness Chief Complaint: Dental/oral infection Primary Care Provider: CHACORTA Shukla Eloina is a pleasant 38-year-old female with PMH of metabolic syndrome, tobacco dependence, depression, ovarian cyst, and kidney stones. Patient originally presented to the ED on the evening of 07/26 for left-sided facial swelling and tooth pain. She reports that the tooth pain has been ongoing and worsening since . She has tried rinsing with salt water, applying heat and ice to the site, taking Tylenol and ibuprofen, and even tried swirling a shot of vodka in her mouth and spitting it out on Sunday. Despite this, she reports that she has been having left mandible pain with radiation to the advent and down her neck intermittently. She rates the pain 10/10 at worst, and 5/10 at present. She does report that the ice and heat application do help. While she did try tramadol last night which was prescribed in the ED, she believes it made her sick and she threw up last night. She returned to the ED on the morning of 07/27. She has had a problem with her left molar for an extended period of time, and her dentist has tried to take it out twice; however, they told her that they might need to put her to sleep for this procedure, and she has had some anxiety about doing this and has been putting it off. 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 She had difficulty eating yesterday, and reports that the swelling "doubled" in size overnight. Patient took her regular morning medication today; only recent change in medication is that she started Wegovy 4 weeks ago. NKDA. She denies having a penicillin allergy, and did take the penicillin V potassium that was prescribed to her this morning. She is a current everyday tobacco cigarette smoker; less than 1 PPD; however she does say that she is going to start bupropion; she declines a nicotine patch on admission, but reports she may need one down the line. She denies any recent alcohol use or recreational drug use. No prior history of cellulitis or skin/soft tissue infections to her knowledge. Patient is mildly tachycardic around 103 bpm at time of admission; vitals otherwise stable. ED course: NSS 1000 mL IV Zofran 4 mg IV Unasyn 3000 mg IV ROS: Patient endorses low-grade fever (99.4 F this morning), body aches, weakness, lightheadedness, left mandibular pain/swelling, nausea/vomiting (with patient attributes to taking tramadol last night), and diarrhea on the morning of 07/27 (which patient attributes to anxiety; ?PCN). Patient denies chills, night sweats, syncope, headache, changes in vision/hearing, ear pain, tinnitus, difficulty swallowing, airway closure, chest pain, chest palpitations, pleuritic CP, SOB, cough, abdominal pain, changes in urinary/bowel habits, blood in urine or stool, or burning with urination. Allergies Allergy/AdvReac Type Severity Reaction Status Date / Time No Known Drug Allergies AdvReac Intermediate Unverified 07/23/24 09:36 Home Medications Medication Instructions Recorded Confirmed Type medroxyprogesterone 10 mg tablet 10 mg PO DAILY PRN Other 05/12/24 07/27/24 History semaglutide (weight loss) 0.25 0.25 mg (0.5 mL) subcut Q7D #2 mL 05/22/24 07/27/24 Rx mg/0.5 mL subcutaneous pen injector (Wegovy) lidocaine HCl 2 % mucosal solution 15 ml PO QID PRN mouth pain #300 mL 07/26/24 07/27/24 Rx (Lidocaine Viscous) penicillin V potassium 500 mg 500 mg PO QID #40 tabs 07/26/24 07/27/24 Rx tablet tramadol 50 mg tablet 50 - 100 mg (1 - 2 x 50 mg) PO Q6H 07/26/24 07/27/24 Rx PRN pain #10 tabs bupropion HCl 150 mg tablet,12 hr 150 mg PO UD 07/27/24 07/27/24 History sustained-release Past Med/Surg History Problem List (Updated 07/27/24 @ 13:55 by Deshaun Almanza PA-C) Obesity Facial cellulitis Left facial swelling (Acute) Jaw pain (Acute) Metabolic dysfunction-associated steatotic liver disease (MASLD) Impaired fasting glucose Hypertriglyceridemia Metabolic syndrome Tobacco dependence Grief Polycystic ovarian syndrome Ovarian cyst, bilateral (Acute) Kidney stone (Acute) Medical History Kidney stone (07/15/13) Polycystic ovaries (07/15/13) Broken tooth Surgical History Hx of cholecystectomy (07/15/13) Previous section (07/15/13) 2x History of ankle surgery 2020 History of dental surgery Family History Brother Alcohol abuse Diabetes Myocardial infarction Mother Anxiety Lung disease Father Diabetes Gallbladder disease Heart disease Hypertension Sister Gallbladder disease Aunt Breast cancer great aunt Denies family history of Ovarian cancer Prostate cancer Colorectal cancer Social History Smoking Status: Current every day smoker Tobacco Type: Cigarettes Age Started Using Tobacco: 20; packs per day: 0.5; Second Hand Exposure: No; Do You Dip or Chew Tobacco: No; Hx Alcohol Use: Yes Alcohol Intake Frequency: Monthly or Less Hx Substance Use: No Preferred Language: Mongolian Visual Impairment: No Limitations Hearing Ability: Normal Strike Off Machine Operator Required: No Beliefs That Will Affect Care: Cultural marital status: Current Living Situation: Spouse and Family current occupational status: employed 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; 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 How many Children do You have: 2 Feels Safe at Home: Yes Childhood Exposure to Second-Hand Smoke: Yes Diet: other Dental Care, Regularly: Yes Physical Activity Frequency: 1-2 Times per Week Seatbelt Use: always Sunscreen Use: Yes Review of Systems Review of Systems: See HPI above Physical Exam Physical Exam: General: no acute distress; pleasant affect; non-toxic appearing; cooperative; SpO2 96% on RA HEENT: normocephalic, atraumatic; no scleral icterus; PERRLA; uvula is midline at the back of the throat; coral pink oral mucosa; left lower molar shows signs of swelling and infection; notable dental caries; vision and hearing grossly intact; left mandible is not erythematous Neck: supple; mild lymphadenopathy noted in the left submandibular lymph nodes; airway is patent; trachea midline Skin: warm, dry without signs of tenting; no cyanosis; no rashes, bruising, lesions, or erythema noted CV: chest wall NTP; RRR; S1/S2 normal; no murmurs/rubs/gallops; pulses intact and symmetric at radial, DP, and PT Lungs: no acute respiratory distress; symmetrical chest wall expansion; clear breath sounds across all lung jeffries w/o adventitious sounds; no wheezing; no stridor ABD: Soft, NTP in all 4 quadrants; BS present; no rebound/guarding; no distention MSK: no tics or fasciculations; no edema noted in the LEs b/l, nonerythematous Neuro: A&Ox3; normal mood and affect; fluent speech; no focal deficits; sensation intact and symmetric in the lower extremities bilaterally Results & Data Results & Data Vital Signs (Past 12 Hours) Vital Signs Temp Pulse Resp BP Pulse Ox O2 Del Method 07/27/24 11:33 36.9 C 103 H 19 126/84 96 Room Air Laboratory Results Abnormal lab results 07/27/24 Range/Units 12:08 Lymph # (Auto) 1.07 L (1.20-3.40) K/uL BUN/Creatinine Ratio 23.4 H (10-20) Diagnostic Findings Soft Tissue Neck CT 07/27/24 11:55 CT soft tissue neck w con HISTORY: 38 years-old Female L facial edema, dental issue acute left sided facial pain with swelling COMPARISON: None TECHNIQUE: Multiple axial CT images of the soft tissues of the neck were obtained with IV contrast. A dose lowering technique was used consistent with the principals of JESÚS. FINDINGS: Peripheral enhancing 10 x 2 mm abscess abuts the left fibular alveolar ridge on image 183 series 3. Moderate adjacent mild to moderate cellulitis changes with reactive submandibular lymph nodes measuring up to 7 mm. Unremarkable parotid and submandibular glands. Patent airway. Unremarkable epiglottis, glottis and subglottic airway. Subcentimeter hypodense right-sided thyroid nodule. Lung apices are clear. No pneumothorax. No drainable fluid collections. The imaged intracranial structures and vascular structures appear unremarkable. Mastoid air cells and middle ear cavities are clear. Small left ethmoid sinus osteoma. Large dental caries with moderate-sized periapical cyst formation is noted within the first left mandibular molar on image 161 series 3. Numerous prior dental extractions. IMPRESSION: 1. Left first mandibular molar dental caries with periapical cyst formation. 2. There is adjacent left mandibular/facial cellulitis with 10 mm abscess. ACT 112: Negative or not required by law. The above report was generated using voice recognition software. It may contain grammatical, syntax or spelling errors. Electronically signed by: Stephen Gonzalez M.D. 07/27/2024 12:59 PM Code Status & VTE Plan Code Status Full code (discussed with patient at bedside; while no paperwork in place, she would want her or sister to be medical proxy in an emergency situation) VTE Prophylaxis Plan VTE Prophylaxis will be ordered: Yes Supervising Physician Co-Signing Physician Notes I have personally seen, evaluated and examined the patient. I have also personally discussed the management of the patient with the resident physician/FABIÁN and I agree with the exam findings documented in the history and physical examination and the documented assessment and plan unless otherwise stated below. Brief Exam: In general very pleasant 38-year-old female is alert and orient x 3 at the time my exam. She interacts appropriately pleasantly. HEENT: Normocephalic atraumatic. She does have some mild swelling in the left mandibular region. She has a back molar that is partially decayed probably a nidus of infection. This been attempted to be extracted in the office twice however they could not get her local anesthesia to the point where she did not tolerate it. Heart: Regular rate and rhythm. Lungs: Clear bilaterally. Abdomen: Soft and nontender/benign. Extremities: Intact without edema. Neurologically alert and oriented x 3. With no focal deficit. Assessment/plan: As discussed above. Clear liquids. Analgesics antiemetics continue Unasyn. Await input from maxillofacial surgery for possible tooth extraction and/or abscess drainage. N.p.o. after midnight. PG Care Time/CCT Total # of Minutes Spent Total Time Spent with Patient: Total time spent is greater than 50% in coordination of care (as documented) at patient's floor/unit and/or counseling patient: Coding [place] [address] INT INP/OBS CARE 2/55MIN Patient Type Established Medical Decision Making Moderate Complexity Diagnoses Facial cellulitis L03.211 Tobacco dependence F17.200 Obesity E66.9 Left facial swelling R22.0 Jaw pain R68.84
[2024-07-27] MEDS: ONDANSETRON INJ 2 MG/ML 2 ML VIAL IV STA (13:24)
[2024-07-27] MEDS ORDERED: ONDANSETRON INJ 2 MG/ML 2 ML VIAL IV PRN (13:24)
[2024-07-27] MEDS: ACETAMINOPHEN 325 MG TAB PO PRN (15:50)
[2024-07-27] MEDS ORDERED: diphenhydrAMINE 50 MG/ML VIAL IV PRN (16:37)
[2024-07-27] MEDS: AMPICILLIN/SULBACTAM SOD 3,000 MG/100 ML BAG IV SCH (20:05)
[2024-07-27] MEDS: KETOROLAC TROMETHAMINE 15 MG/ML VIAL IV PRN (20:13)
[2024-07-27] MEDS ORDERED: Nursing to Pharmacy Communication SCH (21:45)
[2024-07-28 07:17] LABS: Basophils # (auto) 0.04 K/uL (0.00-0.20); Basophils % (auto) 0.8 %; Eosinophils # (auto) 0.16 K/uL (0.00-0.50); Hematocrit (blood only) 39.3 % (37.0-47.0); Hemoglobin 13.2 g/dl (12.0-16.0); Immature Granulocytes # (auto) 0.02 K/uL (0.01-0.20); Immature Granulocytes % (auto) 0.4 %; Lymphocytes # (auto) 1.57 K/uL (1.20-3.40); Lymphocytes % (auto) 29.5 %; Mean Corpuscular Hemoglobin 30.1 pg (25.0-34.0); Mean Corpuscular Hgb Conc 33.6 g/dL (32.0-36.0); Mean Corpuscular Volume 89.7 fL (80.0-100.0); Mean Platelet Volume 12.2 fL (9.4-12.4); Neutrophils # (auto) 2.73 K/uL (1.40-6.50); Neutrophils % (auto) 51.3 %; Platelet Count 162 K/uL (130-400); RDW Coefficient of Variation 12.2 % (11.5-14.5); RDW Standard Deviation 40.1 fL (36.4-46.3); Red Blood Count 4.38 M/uL (4.20-5.40); White Blood Count 5.32 K/ul (4.8-10.8)
[2024-07-28 07:33] LABS: Albumin Globulin Ratio 1.5 (0.9-2); Albumin Level 3.5 gm/dl (3.4-5.0); BUN Creatinine Ratio 13.1 (10-20); Bilirubin,Total 0.7 mg/dl (0.2-1.0); C Reactive Protein 2.97 mg/dl (0-0.5); Calcium 8.4 mg/dl (8.6-10.3); Creatinine Clr Calc Pharmacy 152.3 ml/min; Globulin 2.4 gm/dl (2.5-4.0); Magnesium 1.8 mg/dl (1.7-2.4); Potassium 3.6 mmol/L (3.5-5.1); Total Protein 5.9 gm/dl (6.0-8.3)
--- NOTE | 2024-07-28 08:08 | Hospitalist Progress Note ---
Date of Service July 28, 2024 Assessment & Plan (1) Facial cellulitis: Plan: No leukocytosis; afebrile; CRP 2.[address] revealed left mandibular/facial cellulitis with a 10 mm abscess Oral maxillary facial surgery consulted, s/p I&D and tooth extraction 07/28 Clear liquid diet post-op Continue Unasyn 3000 mg IV q6h, tentative plan to discharge tomorrow AM on PO Augmentin Pain control with ice, acetaminophen and Toradol as needed AM CBC, BMP (2) Tobacco dependence: Plan: Patient is a current everyday tobacco cigarette smoker; <1PPD While she declines nicotine patch on admission, she reports that she might need one later on She reports that she is planning to start on bupropion in the near future Continue to encourage smoking cessation (3) Obesity: Plan: Patient recently started Wegovy for weight loss Hold Wegovy while inpatient (4) Left facial swelling: Plan: As above (5) Jaw pain: Plan: As above [facility] Full code Clear liquids VTE PPX: SCDs Admission and Anticipated Discharge Date Admission Date: July 27, 2024 Supervising Physician Co-Signing Physician Notes Attending Physician Supervision Note: I independently interviewed and examined the patient and verified the simms history and physical, reviewed labs and image studies and agree with findings and care plan noted above. Seen after OR. Comfortable. Pain better. Eating clear liquid diet. Facial swelling - left - Mild Dental abscess/facial cellulitis - s/p I & D and #19 tooth extraction. -continue IV Unasyn. -anticipate d/c home in am. Subjective Eloina is a 38F with a history of tobacco use and metabolic syndrome presenting with L facial swelling and pain in lower jaw. Eloina was seen in the [facility] on 07/26 and 07/27 for jaw pain. She reports chronic teeth grinding and has had many broken teeth. She broke her left lower molar almost 2 years ago. She had pain which resolved on its own. She has used a mouth guard int he past, but has been unable to use it with this broken tooth. She sees a dentist regularly in [place]-most recently 2 months ago when he attempted to remove the tooth, but was unable to fully numb the area and had to stop the procedure. He wanted to do general anesthesia in the office but the patient reports dental anxiety and refused. Was seen in [facility] on 07/24 for 10/10 lower jaw pain. She reports that the day she presented, she had tried swishing her mouth with blue vodka, which caused burning but did relieve the pain. After this, the area began swelling. She was discharged with penicillin V 5oo mg, viscous lidocaine 15 mL and tramadol 50mg and recommended to follow-up with outpatient dentistry. No lab abnormalities or abnormal vital signs at this time. She returned 07/27 with increased pain and swelling. CT head and neck revealed a 10 mm abscess. IV Unasyn was initiated and OMFS was consulted. At time of exam, Eloina reports 0/10 pain, as her pain medication had been given about 30 minutes ago. Prior to this, her pain was 5/10. She reports feeling much better today than yesterday. Eloina denies any pus, blood or drainage from the site. She had one episode of nausea and vomiting following a dose of tramadol, but this resolved with zofran. She had a headache yesterday, which has since resolved. She is NPO since midnight. Eloina has a 20 pack year history and is a current smoker. She denies hx of chew, snuff. She has attempted to quit in the past. Her PCP started her on bupropion to encourage cessation along with semaglutide for weight loss. She has not yet started bupropion. She was due for her 4th dose of semaglutide yesterday, but did not receive due to return to hospital. She denies any marijuana, other drug use. She denies recent illness. Has two children in school but they have not been sick recently. Eloina has had multiple surgeries in the past (2x , cholecystectomy, tonsillectomy, ankle surgery (2019)) and has never had difficult wound healing, recovery. Review of Systems Constitutional: Denies fever, chills, recent weight loss, cold or heat intolerance. Denies recent travel, sick contacts. Eyes: Denies changes in vision, blurry vision. Ear, Nose, Mouth, Throat: Denies changes in hearing. Denies congestion, sore throat, dysphagia. Respiratory: Reports chronic, productive cough due to smoking history Denies SOB, dyspnea. Cardiovascular: Additional Comments: Denies CP, palpitations Gastrointestinal: Endorses nausea and 1x vomiting after tramadol dose. Resolved with zofran. Denies abd pain, diarrhea, constipation. Genitourinary: Denies dysuria, hematuria. Musculoskeletal: Denies muscle weakness, pain. Integumentary: Denies skin changes, other wounds. Neurologic: Denies recent changes in cognition Psychiatric: Reports baseline dental anxiety. Denies other changes in mood. Physical Exam Constitutional: Patient is alert and oriented x4. Appropriate mood and affect. Eyes: EOMI. PERRLA. Sclera clear. No conjunctival pallor. ENMT: Pronounced swelling of left jaw which does not impact the patient's ability to produce speech. L cheek producing heat. No erethyma or exudate of nasal cavity, pharynx. No drainage noted from left lowar molar. Swelling noted. Many teeth extracted on R upper mouth and L lower. Neck: Swelling extends into L neck. Neck tender to palpation. Respiratory: Lungs clear to auscultation bilaterally. No wheezing, rales or rhonchi. Cardiovascular: Regular rate and rhythm, no murmurs rubs or gallops. Lower extremity edema +1. Peripheral pulses +2 in all four extremities. Cap refill <2 seconds bilaterally. Chest (Breasts): Additional Comments: No chest wall abnormalities Musculoskeletal: No gross abnormalities. Skin: Warm, dry. Neurologic: Normal speech and cognition. Coordination intact. Psychiatric: Appropriate mood and affect. Results & Data Results & Data Vital Signs (Past 12 Hours) Vital Signs Temp Pulse Resp BP BP Pulse Ox O2 Del Method 07/28/24 07:23 37.0 C 66 18 103/67 96 Room Air 07/27/24 20:47 36.8 C 67 18 106/70 98 Room Air 07/27/24 20:15 Room Air Laboratory Results CRP 2.97 H No other significant lab results Resident Activity Tracking Resident Involvement: Resident Care Provided Care Provided: Adult Hospital Medicine
[2024-07-28 08:28] LABS: Prothrombin Time 10.9 Seconds (9.0-12.0)
--- NOTE | 2024-07-28 09:25 | Oral/Maxillofacial Consult ---
Date of Consultation July 28, 2024 Assessment & Plan (1) Dental abscess: (2) Left facial swelling: (3) Jaw pain: (4) Trismus: History of Present Illness Attending Physician: Karie Plascencia MD History of Present Illness Oral Maxillofacial Surgery Exam Present Complaint: I have pain/swelling/drainage from my infected # 18 tooth and swelling left side with jaw trismus Symptoms have been ongoing for a 48 hours and getting worse left facial infection will need I&D Will plan NPO and I&D today in OR Maximum Pain Intensity: 6 This is a 38-year-old female that presents to the emergency department via private vehicle with complaints of "left-sided facial swelling, dental pain". The patient notes this past she began with some pain to the left posterior inferior molar region. No trauma. No injury. She notes that the left posterior inferior molar is broken on the backside. She is trying to follow-up with specialists. She notes that she was seen here yesterday and started on oral penicillin as had 2 doses thus far. Upon awakening she notes progressive left-sided facial swelling and pain. She is concerned noting the swelling and progression. Oral Exam: Finding--Swollen and tender gingival tissue with deep pocket formation.# 18 is fractured and has a deep carious lesion removal with L&D is clinical indicated. Imaging: The CT was reviewed there were no abnormal findings other then then the # 18 carious tooth and facial abscess. The TMJ are well positioned and no evidence of bony pathology. The sinus, supporting bone all WNL Evaluated the nerve/sinus relationship to the roots of the teeth. Soft tissue: The floor of the mouth,is slightly swollen and very tender. Swollen left submandibular, masseter space and subperiosteal spaces are infected The tongue, hard/soft palate, posterior pharyngeal area all with in normal limits, no pathology or abnormal findings noted. No lesions noted that require follow up or Bx. Oral Care: Overall oral care is good Occlusion: Class I missing teeth TMJ exam: Limited opening Periodontal exam: Healthy gingival tissue without evidence of periodontal pathology. Head/Neck exam: Neck is supple, FROM, Able to extend and flex neck w/o difficulty, no masses, no abnormalities, no airway issues, no evidence of sleep apnea. Treatment Plan: Set up with general anesthesia in hospital for I&D with extraction of # 18 due to complexity of the procedure I reviewed the treatment plan and consent with the patient. Understanding was expressed. Time was given for questions regarding the surgery, risks and post op care. Discussed alternative to treatment--procedure as planned, Do not do surgery The following tooth # 18 is decayed and fractured and removal is indicated with I&D KELLY: Risks discussed: Bleeding,Pain,swelling,infection, dry socket, delayed healing, nerve injury to face,lips,tongue,chin area which could be permanent (rare). TMJ, jaw stiffness, change in bite (rare), ear pain (referred). Sinus problems like fistula or infection. Need to leave a small root fragment in place to avoid injury to nerve or sinus. Relationship of tooth to nerve/sinus and risk of jaw fracture. Home care reviewed: Need for oral antibiotics need for routine dental follow up Surgery to be set up in the OR this afternoon for I&D with extraction of # 18 Allergies Allergy/AdvReac Type Severity Reaction Status Date / Time No Known Drug Allergies AdvReac Intermediate Unverified 07/23/24 09:36 Home Medications Medication Instructions Recorded Confirmed Type medroxyprogesterone 10 mg tablet 10 mg PO DAILY PRN Other 05/12/24 07/27/24 History semaglutide (weight loss) 0.25 0.25 mg (0.5 mL) subcut Q7D #2 mL 05/22/24 07/27/24 Rx mg/0.5 mL subcutaneous pen injector (Reggievy) lidocaine HCl 2 % mucosal solution 15 ml PO QID PRN mouth pain #300 mL 07/26/24 07/27/24 Rx (Lidocaine Viscous) penicillin V potassium 500 mg 500 mg PO QID #40 tabs 07/26/24 07/27/24 Rx tablet tramadol 50 mg tablet 50 - 100 mg (1 - 2 x 50 mg) PO Q6H 07/26/24 07/27/24 Rx PRN pain #10 tabs bupropion HCl 150 mg tablet,12 hr 150 mg PO UD 07/27/24 07/27/24 History sustained-release Patient History Medical History Kidney stone (07/15/13) Polycystic ovaries (07/15/13) Broken tooth Surgical History Hx of cholecystectomy (07/15/13) Previous section (07/15/13) 2x History of ankle surgery 2020 History of dental surgery Family History Brother Alcohol abuse Diabetes Myocardial infarction Mother Anxiety Lung disease Father Diabetes Gallbladder disease Heart disease Hypertension Sister Gallbladder disease Aunt Breast cancer great aunt Denies family history of Ovarian cancer Prostate cancer Colorectal cancer Social History Smoking Status: Current every day smoker Tobacco Type: Cigarettes Age Started Using Tobacco: 20; packs per day: 0.5; Second Hand Exposure: No; Do You Dip or Chew Tobacco: No; Tobacco Cessation Education Requested by Patient: No Hx Alcohol Use: No Hx Substance Use: No Preferred Language: Welsh Communication Ability: Effective Visual Impairment: No Limitations Hearing Ability: Normal Policy Writer Sales Required: No Beliefs That Will Affect Care: None marital status: Current Living Situation: Spouse current occupational status: employed 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; 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 How many Children do You have: 2 Other Information That Helps Us Care for You: No Feels Safe at Home: Yes Safety Concerns: Feels Safe At This Time Childhood Exposure to Second-Hand Smoke: Yes Diet: other Dental Care, Regularly: Yes Physical Activity Frequency: 1-2 Times per Week Seatbelt Use: always Sunscreen Use: Yes Assistive Devices: None Results & Data Vital Signs (Past 12 Hours) Vital Signs Temp Pulse Resp BP Pulse Ox O2 Del Method 07/28/24 07:23 37.0 C 66 18 103/67 96 Room Air PG Care Time/CCT Total # of Minutes Spent Total Time Spent with Patient: Total time spent is greater than 50% in coordination of care (as documented) at patient's floor/unit and/or counseling patient: Coding Level of Care Code 43160 IN/OBS CONSULT LVL 2,35M Diagnoses Dental abscess K04.7 Left facial swelling R22.0 Jaw pain R68.84 Trismus R25.2 CPT Codes EO I&D ABSC/CYST FLOOR OF MOUTH HOME HEALTH OCCUPATIONAL THERAPIST SP - 43068 ([id number]) REM IMP TOOTH W MUCOPER FLP - [id number] ([id number])
[2024-07-28] MEDS ORDERED: ATROPINE SULFATE 0.1 MG/ML 10ML SYR IV PRN (11:42)
[2024-07-28] MEDS ORDERED: ePHEDrine sulfate 50 MG/ML AMP IV PRN (11:42)
[2024-07-28] MEDS ORDERED: PROMETHAZINE HCL 6.25 MG in SODIUM CHLORIDE 0.9% 50 ML IV PRN (11:42)
--- NOTE | 2024-07-28 11:42 | Anesthesiology Consultation ---
Date of Service July 28, 2024 Assessment & Plan Chart Review Chart Review: Acceptable Risk for Surgery and Patient NOT seen in Pre Admission Testing Consults Requested none ASA ASA2 Proposed Anesthesia Anesthesia Type: General Risk / Benefits Reviewed With: PT / POA / Parent / Guardian, Accepts Plan and Informed Consent Obtained History Surgery Operation Date: 07/28/24 10:00 Proposed Procedures p Incision and Drainage Left Lower Jaw - Rivera Shipley, SHIRA s Extraction of #18 - Rivera R SHIRA Shipley Height/Weight Height: 5 ft 5 in Weight: 109.316 kg Allergies Allergy/AdvReac Type Severity Reaction Status Date / Time No Known Drug Allergies AdvReac Intermediate Unverified 07/23/24 09:36 Medications Home Medications Medication Instructions Recorded Confirmed Last Taken medroxyprogesterone 10 mg tablet 10 mg PO DAILY PRN Other 05/12/24 07/27/24 Unknown semaglutide (weight loss) 0.25 0.25 mg (0.5 mL) subcut Q7D #2 mL 05/22/24 07/27/24 Unknown mg/0.5 mL subcutaneous pen injector (Kecia) lidocaine HCl 2 % mucosal solution 15 ml PO QID PRN mouth pain #300 mL 07/26/24 07/27/24 Unknown (Lidocaine Viscous) penicillin V potassium 500 mg 500 mg PO QID #40 tabs 07/26/24 07/27/24 07/27/24 tablet tramadol 50 mg tablet 50 - 100 mg (1 - 2 x 50 mg) PO Q6H 07/26/24 07/27/24 Unknown PRN pain #10 tabs bupropion HCl 150 mg tablet,12 hr 150 mg PO UD 07/27/24 07/27/24 Unknown sustained-release Active Medications Generic Name Dose Route Start Last Admin Trade Name Freq PRN Reason Stop Dose Admin Acetaminophen 650 mg 07/27/24 13:24 07/27/24 15:50 Acetaminophen 325 Mg Tab PO 08/26/24 13:23 650 mg Q4H PRN Administration pain/fever Ampicillin Sodium/Sulbactam Sodium 3,000 mg in 100 mls @ 200 mls/hr 07/27/24 19:00 07/28/24 08:59 Unasyn IV 08/03/24 18:59 Infused Q6H RAYMOND Infusion Ketorolac Tromethamine 15 mg 07/27/24 16:37 07/28/24 08:05 Ketorolac Tromethamine 15 Mg/Ml Vial IV 08/01/24 16:36 15 mg Q6H PRN Administration Pain NPO Date Last Intake of Fluids: 07/28/24 Time Last Intake of Fluids: 02:30 Date Last Intake of Solids: 07/27/24 Time Last Intake of Solids: 17:30 Past Medical History Medical History Kidney stone (07/15/13) Polycystic ovaries (07/15/13) Broken tooth Exercise / Class Metabolic Activity II 4-5 Yardwork/Stairs/Walk up hill Past Family History Family History Brother Alcohol abuse Diabetes Myocardial infarction Mother Anxiety Lung disease Father Diabetes Gallbladder disease Heart disease Hypertension Sister Gallbladder disease Aunt Breast cancer great aunt Denies family history of Ovarian cancer Prostate cancer Colorectal cancer Past Surgical History Surgical History Hx of cholecystectomy (07/15/13) Previous section (07/15/13) 2x History of ankle surgery 2020 History of dental surgery Past Anesthesia History No Hx of Anesthesia Complications and No Family Hx of Anesthesia Complications History of PONV No Hx of PONV and No Hx of Motion Sickness Social History Smoking Status: Current every day smoker Do You Dip or Chew Tobacco: No Hx Alcohol Use: No Hx Substance Use: No Physical Exam Vital Signs Last Vital Signs Temp 36.4 C L 07/28/24 11:03 Pulse 50 L 07/28/24 11:03 Resp 18 07/28/24 11:03 BP 98/65 L 07/28/24 11:03 Pulse Ox 98 07/28/24 11:03 O2 Del Method Room Air 07/28/24 11:03 Constitutional + obese ENMT Mouth: no dentition abnormality Thyromental Distance: > or= 3.5 Finger Breadths Mallampati Class: II Neck normal visual inspection Respiratory normal respiratory effort Auscultation: lungs clear to auscultation bilaterally Cardiovascular Rate/Rhythm: regular rate and regular rhythm Psychiatric Orientation: alert Testing Laboratory Results 07/28/24 06:35 07/28/24 06:35 PT 10.9 Seconds (9.0-12.0) 07/28/24 06:35 INR 1.0 (0.9-1.1) 07/28/24 06:35
[2024-07-28] MEDS ORDERED: MIDAZOLAM HCL 1 MG/ML 2ML VIAL ONE ×2 (12:08→13:11)
[2024-07-28] MEDS ORDERED: fentaNYL citrate PF 100 MCG/2 ML VIAL ONE (12:08)
--- NOTE | 2024-07-28 12:28 | History & Physical Bridge Note ---
Date of Service July 28, 2024 History & Physical Bridge Note I have examined the patient, reviewed the History & Physical and in the interval since the performance of the History & Physical I have noted the following changes of clinical significance: no changes noted. OK for the I&D
[2024-07-28] MEDS: CHLORHEXIDINE GLUCONATE 0.12% 480 ML MT ONE (13:00)
[2024-07-28] MEDS ORDERED: NEOSTIGMINE METHYLSULFATE 1 MG/ML 10ML VIAL ONE (13:03)
[2024-07-28] MEDS ORDERED: DEXAMETHASONE SOD INJ 4 MG/ML VIAL ONE (13:03)
[2024-07-28] MEDS ORDERED: GLYCOPYRROLATE 0.2 MG/ML VIAL ONE ×2 (13:03)
[2024-07-28] MEDS ORDERED: ROCURONIUM BROMIDE 10 MG/ML 5 ML VIAL IV ONE (13:03)
[2024-07-28] MEDS ORDERED: LIDOCAINE 2% 2 ML VIAL/AMP(20MG/ML) INFIL ONE (13:03)
[2024-07-28] MEDS ORDERED: PROPOFOL IV EMULSION 10 MG/ML 20 ML VIAL IV ONE (13:03)
[2024-07-28] MEDS ORDERED: diphenhydrAMINE 50 MG/ML VIAL ONE (13:03)
[2024-07-28] MEDS ORDERED: ONDANSETRON INJ 2 MG/ML 2 ML VIAL ONE (13:03)
[2024-07-28] MEDS: BUPIVACAINE/EPINEPHRINE 0.5% 1:200,000 1.8 ML CARP ONE (13:09)
--- NOTE | 2024-07-28 13:14 | Post Operative Brief Note ---
PG Immediate Post Op with CF Date of Surgery July 28, 2024 Pre & Post Diagnosis Operation Date: 07/28/24 10:00 Pre-Op Diagnosis: Dental abscess, Left facial swelling, Trismus Post-Op Diagnosis: Dental abscess, Left facial swelling, Trismus I identified the patient and participated in the time-out.: Yes Procedure Operation Date: 07/28/24 10:00 Actual Procedures p Incision and Drainage Left Lower Jaw(Not Applicable) - Rivera Shipley DMD s Extraction of #19(Not Applicable) - Rivera Shipley DMD Surgeon Rivera Shipley DMD Ancillary Services Manager none Estimated Blood Loss 5 Findings Consistent with Post-Op Diagnosis abscess of left masseter space and vestibular space, extraction # 19 Specimens Specimen Description: A) Excision of Infected tooth #19 infected tissue at apex Anesthesia Type General Complications none Disposition Disposition: Recovery Room
[2024-07-28] MEDS: fentaNYL citrate PF 100 MCG/2 ML VIAL IV PRN (13:25)
[2024-07-28] MEDS: ONDANSETRON INJ 2 MG/ML 2 ML VIAL IV PRN (13:57)
--- NOTE | 2024-07-28 14:19 | Anesthesiology Progress Note ---
Date of Service July 28, 2024 Anesthesia Post Procedure Vital Signs Vital Signs: Temp Pulse Pulse Resp BP BP Pulse Ox 07/28/24 14:05 36.9 C 56 L 12 117/70 98 07/28/24 13:55 62 14 117/73 97 07/28/24 13:45 64 17 120/79 97 07/28/24 13:35 75 20 127/69 95 07/28/24 13:25 81 14 130/79 99 07/28/24 13:17 36.3 C L 85 20 127/81 98 07/28/24 11:03 36.4 C L 50 L 18 98/65 L 98 07/28/24 07:23 37.0 C 66 18 103/67 96 07/27/24 20:47 36.8 C 67 18 106/70 98 07/27/24 20:15 07/27/24 16:39 37.4 C 84 19 121/76 96 07/27/24 15:52 78 16 110/69 97 O2 Del Method O2 Flow Rate 07/28/24 14:05 Room Air 07/28/24 13:55 Room Air 07/28/24 13:45 Room Air 07/28/24 13:35 Room Air 07/28/24 13:25 Oxymask 5 07/28/24 13:17 Oxymask 5 07/28/24 11:03 Room Air 07/28/24 07:23 Room Air 07/27/24 20:47 Room Air 07/27/24 20:15 Room Air 07/27/24 16:39 Room Air 07/27/24 15:52 Pain Intensity Left Jaw: Pain Intensity: 5 Head: Pain Intensity: 5 Transfer of Care Handoff Completed per policy Notes Mental Status: alert / awake / arousable Patient Amnestic to Procedure: Yes Nausea / Vomiting: adequately controlled Pain: adequately controlled Airway Patency, RR, SpO2: stable & adequate BP & HR: stable & adequate Hydration State: stable & adequate Anesthetic Complications: no major complications apparent
[2024-07-28 15:24] VITALS: RESP 16
[2024-07-29 07:50] VITALS: BP 99/62; PULSE 60; TEMP 97.7; O2SAT 94
[2024-07-29 08:19] LABS: Hematocrit (blood only) 38.6 % (37.0-47.0); Hemoglobin 12.9 g/dl (12.0-16.0); Mean Corpuscular Hgb Conc 33.4 g/dL (32.0-36.0); Mean Corpuscular Volume 89.8 fL (80.0-100.0); Mean Platelet Volume 12.4 fL (9.4-12.4); Platelet Count 199 K/uL (130-400); RDW Coefficient of Variation 12.2 % (11.5-14.5); White Blood Count 9.95 K/ul (4.8-10.8)
[2024-07-29 08:48] LABS: BUN Creatinine Ratio 14.8 (10-20); Calcium 8.8 mg/dl (8.6-10.3); Creatinine Clr Calc Pharmacy 152.3 ml/min; Potassium 3.9 mmol/L (3.5-5.1)
[2024-07-29] MEDS ORDERED: INFLUENZA VACC TS2024-25(6m+)/PF (IIV3) 0.5mL Syr IM ONE (09:00)
--- NOTE | 2024-07-29 10:51 | Oral/Maxillofacial Progress Nt ---
Date of Service July 29, 2024 Assessment & Plan Admission and Anticipated Discharge Date Admission Date: July 27, 2024 Subjective Post Op infection evaluation at 24 hours The infected area is responding very well. Swelling is gone and the tissue is back to normal in size and texture. No further drainage is noted. Pathology pending Infection has responded very well to the antibiotics, extractions and the I and D. I requested that the patient continue with massage, heat and wound care. At this time the area is well healed and responded well to treatment, no further treatment needed. Eloina will be calling my office for a follow up in 10 days OK for discharge today Augmentin 875 mg 7 days Results & Data Vital Signs (Past 12 Hours) Vital Signs Temp Pulse Resp BP Pulse Ox O2 Del Method 07/29/24 07:49 36.5 C 60 16 99/62 L 94 Room Air 07/29/24 03:05 36.7 C 62 16 102/72 97 Room Air PG Care Time/CCT Total # of Minutes Spent Total Time Spent with Patient: Total time spent is greater than 50% in coordination of care (as documented) at patient's floor/unit and/or counseling patient: Coding Level of Care Code None
--- NOTE | 2024-07-29 11:09 | Discharge Summary ---
Date of Service July 29, 2024 Admission HPI Per Admitting Provider Eloina is a pleasant 38-year-old female with PMH of metabolic syndrome, tobacco dependence, depression, ovarian cyst, and kidney stones. Patient originally presented to the ED on the evening of 07/26 for left-sided facial swelling and tooth pain. She reports that the tooth pain has been ongoing and worsening since . She has tried rinsing with salt water, applying heat and ice to the site, taking Tylenol and ibuprofen, and even tried swirling a shot of vodka in her mouth and spitting it out on Sunday. Despite this, she reports that she has been having left mandible pain with radiation to the jainism and down her neck intermittently. She rates the pain 10/10 at worst, and 5/10 at present. She does report that the ice and heat application do help. While she did try tramadol last night which was prescribed in the ED, she believes it made her sick and she threw up last night. She returned to the ED on the morning of 07/27. She has had a problem with her left molar for an extended period of time, and her dentist has tried to take it out twice; however, they told her that they might need to put her to sleep for this procedure, and she has had some anxiety about doing this and has been putting it off. 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 She had difficulty eating yesterday, and reports that the swelling "doubled" in size overnight. Patient took her regular morning medication today; only recent change in medication is that she started Wegovy 4 weeks ago. NKDA. She denies having a penicillin allergy, and did take the penicillin V potassium that was prescribed to her this morning. She is a current everyday tobacco cigarette smoker; less than 1 PPD; however she does say that she is going to start bupropion; she declines a nicotine patch on admission, but reports she may need one down the line. She denies any recent alcohol use or recreational drug use. No prior history of cellulitis or skin/soft tissue infections to her knowledge. Patient is mildly tachycardic around 103 bpm at time of admission; vitals otherwise stable. ED course: NSS 1000 mL IV Zofran 4 mg IV Unasyn 3000 mg IV ROS: Patient endorses low-grade fever (99.4 F this morning), body aches, weakness, lightheadedness, left mandibular pain/swelling, nausea/vomiting (with patient attributes to taking tramadol last night), and diarrhea on the morning of 07/27 (which patient attributes to anxiety; ?PCN). Patient denies chills, night sweats, syncope, headache, changes in vision/hearing, ear pain, tinnitus, difficulty swallowing, airway closure, chest pain, chest palpitations, pleuritic CP, SOB, cough, abdominal pain, changes in urinary/bowel habits, blood in urine or stool, or burning with urination. Admission Exam Per Admitting Provider General: no acute distress; pleasant affect; non-toxic appearing; cooperative; SpO2 96% on RA HEENT: normocephalic, atraumatic; no scleral icterus; PERRLA; uvula is midline at the back of the throat; coral pink oral mucosa; left lower molar shows signs of swelling and infection; notable dental caries; vision and hearing grossly intact; left mandible is not erythematous Neck: supple; mild lymphadenopathy noted in the left submandibular lymph nodes; airway is patent; trachea midline Skin: warm, dry without signs of tenting; no cyanosis; no rashes, bruising, lesions, or erythema noted CV: chest wall NTP; RRR; S1/S2 normal; no murmurs/rubs/gallops; pulses intact and symmetric at radial, DP, and PT Lungs: no acute respiratory distress; symmetrical chest wall expansion; clear breath sounds across all lung jeffries w/o adventitious sounds; no wheezing; no stridor ABD: Soft, NTP in all 4 quadrants; BS present; no rebound/guarding; no distention MSK: no tics or fasciculations; no edema noted in the LEs b/l, nonerythematous Neuro: A&Ox3; normal mood and affect; fluent speech; no focal deficits; sensation intact and symmetric in the lower extremities bilaterally Principal Diagnosis dental abscess Discharge Exam Constitutional WD/WN, vitals as above ENMT reduced facial swelling/asymmetry, reduced trismus. Respiratory normal respiratory effort, lungs clear to auscultation Cardiovascular RRR, no murmur, no edema Psychiatric A+Ox3, euthymic affect Discharge Data Allergies Allergy/AdvReac Type Severity Reaction Status Date / Time No Known Drug Allergies AdvReac Intermediate Unverified 07/23/24 09:36 Consultations 07/27/24 13:20 ED Decision to Admit Stat 07/27/24 13:22 Consult Oromaxillofacial Surgery Routine Procedures Performed Operation Date: 07/28/24 10:00 Actual Procedures p Incision and Drainage Left Lower Jaw(Not Applicable) - Rivera Shipley DMD s Extraction of #19(Not Applicable) - Rivera Shipley DMD Ordered Studies 07/27/24 11:55 CT soft tissue neck w con Stat Hospital Course (1) Dental abscess: With facial cellulitis- Soft tissue neck CT revealed left mandibular/facial cellulitis with a 10 mm abscess Oral maxillary facial surgery consulted, s/p I&D and tooth extraction 07/28, apical tissue pathology pending Abx: treated with IV Unasyn during hospital stay, discharged on PO Augmentin BID x7 days Pain control with acetaminophen and Motrin as needed Follow up with oral/maxillofacial surgery as outpatient in 10 days (2) Facial cellulitis: (3) Tobacco dependence: Patient is a current everyday tobacco cigarette smoker <1PPD Continue to encourage smoking cessation (4) Obesity: (5) Left facial swelling: As above (6) Jaw pain: As above Total Time Total Time Spent Total Time Spent (In Minutes): see attending attestation Discharge Plan Discharge Items Patient Disposition: Home - Self-Care Reason For Visit: ABSCESS Discharge Diagnosis: Facial infection with Jaw trismus Condition on Discharge: Good Activity: Resume your previous activity Lifting: Gradually increase as tolerated Bathing: No limitations Exercise/Sports: Gradually increase as tolerated Driving/Machine Use: Resume 1 day after discharge Weightbearing: Full weightbearing Non-emergency contact: Surgeon Call non-emergency contact if: your temperature is above 101, your temperature is above 101.5, your wound has increased redness, your wound has increased drainage and your wound pain has increased Follow-up/Referrals: Desmond Honeycutt CRNP [Primary Care Provider] - Rivera Shipley DMD [Physician] - Diet: Regular, Full liquid and Clear liquid Diet Texture: Easy to Chew Addtl Attending Provider Instructions: ADDITIONAL ACTIVITY RECOMMENDATIONS: * [place] teeth after every meal. It is very important to keep your mouth clean to prevent infection. * Starting tonight rinse with the Peridex as directed then 2 x a day * it is very important to keep well hydrated, this prevents fever and possible dry socket pain SPECIAL CARE INSTRUCTIONS: *It is not uncommon that between day 2-4 that your swelling will be at its worst this is very normal, do not be alarmed. * Keep ice on the side of your face for the next 24 to 36 hours. This will help keep the swelling down. * After 36 hours, apply heat (hot water bottle or heating pad) for the next two days, as often as possible. * Tomorrow start rinsing your mouth with 1/2 teaspoon salt in 8 ounces warm water. This rinse should be used every 4-6 hours. * You may experience slight nausea. To prevent this, never take your medication on an empty stomach. If nauseated, take small sips of pedro melanie until you feel better; then you may start on applesauce and toast. * Some swelling is common. It should gradually decrease within 4-5 days. * A certain amount of bleeding is to be expected. It is often possible to control mild oozing by placing folded gauze over the area and biting down for 30 minutes. If you are unable to control excessive bleeding, call Dr Shipley at [phone] * You may experience some discomfort for a few days. If pain or swelling increases, Call Dr Shipley * Please call Dr. Shipley's office at the number below for a follow up check up in about 10 days. * office address--[address] [facility] . phone # [phone] Medications: - You were started on antibiotics during your hospital stay and are being discharged on oral antibiotics. Please take this medication, called Augmentin twice daily for 7 more days. - For pain control, you may alternate between Tylenol and Motrin as needed. Pending Studies at Discharge: Yes Studies:: Pathology of apical tissues Stand-Alone Forms: My [facility] [employer], Smoking Cessation Medications and DC Order Prescriptions: New amoxicillin-pot clavulanate 875-125 mg tablet 1 tab PO Q12H 7 Days Qty: 14 0RF Continued Wegovy 0.25 mg/0.5 mL pen injector 0.25 mg subcut Q7D Qty: 2 2RF medroxyprogesterone 10 mg tablet 10 mg PO DAILY PRN (Reason: Other) bupropion HCl 150 mg tablet sustained-release 12 hr 150 mg PO UD Rx Instructions: hasnt started yet Start one tab daily for 3 days then increase to 150mg twice a day. Start at least 1 week before target quit date. penicillin V potassium 500 mg tablet 500 mg PO QID Qty: 40 0RF tramadol 50 mg tablet 50 - 100 mg PO Q6H PRN (Reason: pain) Qty: 10 0RF Rx Instructions: hasnt picked up yet. Initial Treatment lidocaine HCl [Lidocaine Viscous] 2 % solution 15 ml PO QID PRN (Reason: mouth pain) Qty: 300 0RF Rx Instructions: hasnt picked up Swish and spit 15 mL every 6 hours prn Discharge Orders: Discharge Order (Routine); Ordered 07/29/24 Ordered By: Refugio Zuniga Admission Data Admit Date/Time: 07/27/24 13:24 Attending Provider: Karie Plascencia Admit Provider: Floyd Valencia Primary Care Provider: Desmond Honeycutt Other Providers: Floyd Valencia; Rivera Shipley Other Interventions: Discharge Summary Assessment (RN) Last Done: 07/29/24 11:24 Supervising Physician Co-Signing Physician Notes Attending Physician Supervision Note: I independently interviewed and examined the patient and verified the simms history and physical, reviewed labs and image studies and agree with findings and care plan noted above.
--- NOTE | 2024-08-02 20:17 | Operative Report ---
PG Post Operative Report Pre & Post Diagnosis Operation Date: 07/28/24 10:00 Pre-Op Diagnosis: Dental abscess, Left facial swelling, Trismus Post-Op Diagnosis: Dental abscess, Left facial swelling, Trismus I identified the patient and participated in the time-out.: Yes Procedure Operation Date: 07/28/24 10:00 Actual Procedures p Incision and Drainage Left Lower Jaw(Not Applicable) - Rivera Shipley DMD s Extraction of #19(Not Applicable) - Rivera Shipley DMD Surgeon Rivera Shipley DMD Dot Net Architect none Estimated Blood Loss 5 Findings Consistent with Post-Op Diagnosis Specimens Culture I&D Drains none Anesthesia Type General Complications none Disposition Disposition: Recovery Room Indications Diagnoses Dental abscess K04.7 Left facial swelling R22.0 Jaw pain R68.84 Trismus R25.2 CPT Codes EO I&D ABSC/CYST 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 BED SP - 59306 ([id number]) REM IMP TOOTH W MUCOPER FLP - D7210 ([id number]) # 19 Description of Procedure Actual Procedures p Incision and Drainage Submandibular Abscess, floor of the mouth, masseter space abscess ; Removal of Tooth #19 (Not Applicable) - Rivera Shipley DMD Diagnoses Dental abscess K04.7 Left facial swelling R22.0 Jaw pain R68.84 Trismus R25.2 CPT Codes I&D ABSC/CYST 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 A time out was take for patient ID, antibiotics, equipment and position verification once all agreed the procedure began. Local anesthesia using Marcaine with a vasoconstrictor ( 1.8 ml per site) given into right inferior alveolar nerve A throat pack was placed after the oral cavity was irrigated with saline. Once a surgical level of anesthesia was obtained and the local anesthesia was given time for the blocks the surgery was started. I turned my attention to the infection which was located in the floor of the mouth and submental area. The tongue was elevated and there was also swelling associated with tooth # 19 ( see CT scan report) Incision and Drainage Using a 15 blade an incision was made medial to the alveolar ridge and lateral to the duct of the submandibular gland. Once the incision was made a lot of pus extruded from the site. This drainage was cultured for anaerobic and aerobic bacteria. A curved hemostat was carefully placed into the infected space along the medial side of the lower jaw and into the submandibular l space. I now turned the hemostat posterior and drained the masseter space. Some further drainage was now allowed to escape from this space-this was the reason for the trismus. I palpated the chin and submental area and no further drainage was expressed. The area was irrigated with at least 100 ml of NS solution. I now turned my attention to remove the # 19 tooth. Lower # 19 The full thick Muco-periosteal flap was made on the facial aspect from retromolar area to # 21. The flap was reflected to expose the the subperiosteal space the bone adjacent to # 19 The rongeur was used to remove bone, the tooth was removed with a 301 elevator, the mental nerve was intact, there was a large amount of granulation tissue on the apex and some more pus that was expressed. At this time the area was irrigated and the large flap and floor of the mouth was closed with a few 2-0 chromic sutures. I inspected the sites to insure all bleeding was controlled. I removed the throat pack and suctioned the throat. A gauze pressure dressing was placed. All instrument and sponge count was correct. The patient was allowed to awake from the anesthesia. Once full awake the anesthesia tube was removed and the patient was taken to the recovery room with all vital sign stable. The patient tolerated the surgery very well. I will follow the patient in my office, Rx and instructions will be given upon discharge. I attest to the content of the Intraoperative Record and any orders documented therein. Any exceptions are noted below.
== END 2024-07-29 12:05 | disposition home or self-care (01) ==
LOC: ED 11:29 → SUATTDRO 13:24 → 3N 13:24 → INTOOBSV 13:24 → 3N 16:14